=== PATIENT | female | born 1965 | race Caucasian/White ===

== ENCOUNTER 2019-04-09 07:42 | Outpatient (CLI) | payer BC, SELFPAY ==
[2019-04-09 08:25] LABS: Cholesterol 113 mg/dL (0-200); HDL Direct 50 mg/dL; Triglycerides 74 mg/dL (<150)
[2019-04-09 08:37] LABS: LDL Cholesterol Direct 45 mg/dL
== END 2019-04-09 07:43 | disposition home or self-care (01) ==
PROVIDERS: PCP Internal Medicine; Visit Provider Internal Medicine
DX: Z79.899 Other long term (current) drug therapy (principal)
CPT/HCPCS: 36415; 80061

== ENCOUNTER 2019-07-17 13:53 | Outpatient (CLI) | payer BC, SELFPAY ==
[2019-07-17 14:27] LABS: Blood Urea Nitrogen 14 mg/dL (7-17); Calcium 8.9 mg/dL (8.4-10.2); Carbon Dioxide 26 mmol/L (22-30); Chloride 102 mmol/L (98-107); Cholesterol 117 mg/dL (0-200); Estimated Glomerular Filt Rate > 60; Glucose 91 mg/dL (65-105); HDL Direct 46 mg/dL; Sodium 135 mmol/L (137-145); Triglycerides 109 mg/dL (<150)
[2019-07-17 14:38] LABS: LDL Cholesterol Direct 47 mg/dL
[2019-07-17 14:57] LABS: Thyroid Stimulating Hormone 0.455 uIU/mL (0.465-4.680)
[2019-07-17 15:05] LABS: Free T4 Free Thyroxine 1.25 ng/mL (0.78-2.19)
[2019-07-21 10:44] LABS: Homocysteine 9.8 umol/L (<10.4)
== END 2019-07-17 13:54 | disposition home or self-care (01) ==
LOC: ANHLAB 13:55
PROVIDERS: PCP Internal Medicine; Visit Provider Internal Medicine
DX: E78.2 Mixed hyperlipidemia (principal); R79.89 Other specified abnormal findings of blood chemistry; E03.9 Hypothyroidism, unspecified; Z79.899 Other long term (current) drug therapy
CPT/HCPCS: 36415; 80048; 80061; 83090; 84439; 84443

== ENCOUNTER 2019-08-26 07:21 | Outpatient (CLI) | payer BC, SELFPAY ==
--- NOTE | ~2019-08-26 | MM_ITS ---
EXAMINATION: MM screening [facility] BI w xenia HISTORY: Screening mammogram TECHNIQUE: Craniocaudal and mediolateral oblique 3-D tomosynthesis images were obtained and synthetic 2-D images were generated. CAD analysis was submitted and interpreted. COMPARISON: 06/20/2018, 05/31/2017, 04/06/2016 BREAST PARENCHYMAL COMPOSITION: There are scattered areas of fibroglandular density. FINDINGS: There is no evidence of suspicious mass, calcification, or architectural distortion to sugg est malignancy in either breast. There has been no suspicious interval change. IMPRESSION: 1. No mammographic evidence of malignancy. 2. Recommend routine screening mammography in one year. BI-RADS Category 1: Negative Reviewed, dictated and finalized at location A.
== END 2019-08-26 07:22 | disposition home or self-care (01) ==
PROVIDERS: PCP Internal Medicine; Visit Provider Obstetrics & Gynecology
DX: Z12.31 Encounter for screening mammogram for malignant neoplasm of breast (principal)
CPT/HCPCS: 77063; 77067

== ENCOUNTER 2019-11-20 13:30 | Outpatient (CLI) | payer BC, SELFPAY ==
[2019-11-20 13:59] LABS: Alanine Aminotransferase 34 U/L (4-35); Albumin Level 4.4 g/dL (3.5-5.1); Alkaline Phosphatase 68 U/L (38-126); Anion Gap 6 mmol/L (8-16); Aspartate Amino Transferase 28 U/L (14-36); Bilirubin,Total 0.6 mg/dL (0.2-1.3); Blood Urea Nitrogen 13 mg/dL (7-17); Calcium 10.1 mg/dL (8.4-10.2); Carbon Dioxide 29 mmol/L (22-30); Chloride 102 mmol/L (98-107); Cholesterol 150 mg/dL (0-200); Estimated Glomerular Filt Rate 51; Glucose 97 mg/dL (65-105); HDL Direct 56 mg/dL; Potassium 4.2 mmol/L (3.4-5.0); Sodium 137 mmol/L (137-145); Triglycerides 97 mg/dL (<150)
[2019-11-20 14:10] LABS: LDL Cholesterol Direct 65 mg/dL
[2019-11-20 14:32] LABS: Free T4 Free Thyroxine 1.16 ng/mL (0.78-2.19)
== END 2019-11-20 13:31 | disposition home or self-care (01) ==
LOC: ANHLAB 13:32
PROVIDERS: PCP Internal Medicine; Visit Provider Internal Medicine
DX: E78.2 Mixed hyperlipidemia (principal); E03.9 Hypothyroidism, unspecified; Z79.899 Other long term (current) drug therapy
CPT/HCPCS: 36415; 80053; 80061; 84439; 84443

== ENCOUNTER 2020-05-06 13:44 | Outpatient (CLI) | payer BC, SELFPAY ==
[2020-05-06 14:14] LABS: Anion Gap 3 mmol/L (8-16); Blood Urea Nitrogen 12 mg/dL (7-17); Calcium 9.1 mg/dL (8.4-10.2); Carbon Dioxide 29 mmol/L (22-30); Chloride 106 mmol/L (98-107); Cholesterol 126 mg/dL (0-200); Estimated Glomerular Filt Rate 57; Glucose 98 mg/dL (65-105); HDL Direct 51 mg/dL; Potassium 4.1 mmol/L (3.4-5.0); Sodium 138 mmol/L (137-145); Triglycerides 106 mg/dL (<150)
[2020-05-06 14:16] LABS: Hemoglobin A1C 5.3 % (<5.7)
[2020-05-06 14:25] LABS: LDL Cholesterol Direct 49 mg/dL
[2020-05-06 14:44] LABS: Thyroid Stimulating Hormone 0.304 uIU/mL (0.465-4.680)
== END 2020-05-06 13:45 | disposition home or self-care (01) ==
LOC: ANHLAB 13:46
PROVIDERS: PCP Internal Medicine; Visit Provider Internal Medicine
DX: E78.2 Mixed hyperlipidemia (principal); Z79.899 Other long term (current) drug therapy; E03.9 Hypothyroidism, unspecified
CPT/HCPCS: 36415; 80048; 80061; 83036; 84439; 84443

== ENCOUNTER 2020-09-23 11:28 | Outpatient (CLI) | payer BC, SELFPAY ==
--- NOTE | ~2020-09-23 | MM_ITS ---
EXAMINATION: MM screening [facility] BI w xenia HISTORY: Screening TECHNIQUE: Craniocaudal and mediolateral oblique 3-D tomosynthesis images were obtained and synthetic 2-D images were generated. CAD analysis was submitted and interpreted. COMPARISON: Comparison to multiple prior studies sequentially, with oldest reviewed study dated 07/2013. BREAST PARENCHYMAL COMPOSITION: There are scattered areas of fibroglandular density. FINDINGS: There is no evidence of suspicious mass, calcification, or architectural distortion to sugg est malignancy in either breast. There has been no suspicious interval change. IMPRESSION: 1. No mammographic evidence of malignancy. 2. Recommend routine screening mammography in one year. BI-RADS Category 1: Negative Reviewed, dictated and finalized at location A.
== END 2020-09-23 11:29 | disposition home or self-care (01) ==
LOC: ANHIMG 11:31
PROVIDERS: PCP Internal Medicine; Visit Provider Obstetrics & Gynecology
DX: Z12.31 Encounter for screening mammogram for malignant neoplasm of breast (principal)
CPT/HCPCS: 77063; 77067

== ENCOUNTER 2020-12-02 13:28 | Outpatient (CLI) | payer BC, SELFPAY ==
[2020-12-02 13:54] LABS: Basophils Absolute Auto 0.1 K/mm3 (0.0-0.1); Basophils Percent Auto 0.8 % (0.2-1.2); Eosinophils Absolute Auto 0.1 K/mm3 (0-0.3); Eosinophils Percent Auto 1.4 % (0-4.4); Hematocrit 43.6 % (37.0-47.0); Hemoglobin 14.3 g/dL (12.0-15.0); Immature Granulocyte Absolute 0.02 K/mm3 (0.00-0.031); Immature Granulocyte Percent A 0.2 % (0-0.5); Lymphocytes Absolute Auto 3.43 K/mm3 (0.9-3.2); Lymphocytes Percent Auto 39.9 % (18.3-44.2); Mean Corpuscular HGB Conc 32.8 g/dl (32-36); Mean Corpuscular Hemoglobin 31.1 pg (26-34); Mean Corpuscular Volume 94.8 fl (80-100); Mean Platelet Volume 10.2 fl (7.4-10.4); Monocytes Absolute Auto 0.7 K/mm3 (0.1-0.6); Monocytes Percent Auto 8.1 % (2.6-8.5); Neutrophils Absolute Auto 4.3 K/mm3 (1.3-6.7); Neutrophils Percent Auto 49.6 % (45.5-73.1); Platelet Count Result 224 k/mm3 (150-375); Red Cell Distribution Width 12.5 % (11.5-14.5); White Blood Count 8.6 K/mm3 (4.5-10.0)
[2020-12-02 14:21] LABS: Alanine Aminotransferase 32 U/L (4-35); Albumin Level 4.7 g/dL (3.5-5.1); Alkaline Phosphatase 64 U/L (38-126); Anion Gap 5 mmol/L (8-16); Aspartate Amino Transferase 30 U/L (14-36); Bilirubin,Total 0.6 mg/dL (0.2-1.3); Blood Urea Nitrogen 18 mg/dL (7-17); Calcium 9.4 mg/dL (8.4-10.2); Carbon Dioxide 31 mmol/L (22-30); Chloride 102 mmol/L (98-107); Cholesterol 150 mg/dL (0-200); Estimated Glomerular Filt Rate 57; Glucose 94 mg/dL (65-110); HDL Direct 69 mg/dL; Sodium 138 mmol/L (137-145); Triglycerides 107 mg/dL (<150)
[2020-12-02 14:32] LABS: LDL Cholesterol Direct 52 mg/dL
[2020-12-02 14:39] LABS: Free T4 Free Thyroxine 1.52 ng/mL (0.78-2.19)
[2020-12-06 15:32] LABS: Vitamin D 1,25 (OH)2 Total 36 pg/mL (18-72); Vitamin D2 1,25 (OH)2 <8 pg/mL; Vitamin D3 1,25 (OH)2 36 pg/mL
== END 2020-12-02 13:29 | disposition home or self-care (01) ==
LOC: ANHLAB 13:33
PROVIDERS: PCP Internal Medicine; Referring Provider Internal Medicine Endocrinology, Diabetes & Metabolism; Visit Provider Internal Medicine
DX: E78.2 Mixed hyperlipidemia (principal); E55.9 Vitamin D deficiency, unspecified; Z79.899 Other long term (current) drug therapy; E03.9 Hypothyroidism, unspecified
CPT/HCPCS: 36415; 80053; 80061; 82652; 84439; 84443; 85025

== ENCOUNTER 2021-01-27 09:07 | Outpatient (CLI) | payer BC, SELFPAY ==
--- NOTE | ~2021-01-27 | US_ITS ---
EXAMINATION: US abdomen limited EXAM DATE: 01/27/2021 11:09 INDICATION: K82.4 - Cholesterolosis of gallbladder. TECHNIQUE: Multiple grayscale and Doppler images of the abdomen right upper quadrant were obtained (b y a technologist who performed the scan) and subsequently reviewed. There is no prior study for clinton pierson. FINDINGS: The pancreatic head and body are normal in appearance. The pancreatic tail is not visualized. The l iver has normal echogenicity and contour. There are no focal liver lesions identified. There is no evidence of intrahepatic biliary duct dilation. Portal venous flow was seen in the hepatopedal, nor mal direction and has normal Doppler waveform. No right-sided hydronephrosis. Common bile duct measures 3 mm, which is normal. The gallbladder wall is normal in thickness, with ex pected amount of distention. No sonographic evidence of pericholecystic fluid. There is 3-4 mm poly p unchanged, not clinically significant finding; no follow-up indicated. No cholelithiasis. Technolog ist performing exam reports patient did not demonstrate sonographic Higuera's sign. Please note that this sign is less reliable in patients who have received pain medication. IMPRESSION: Unremarkable abdominal ultrasound exam. Reviewed, dictated and finalized at location A. NO PORTER
== END 2021-01-27 09:08 | disposition home or self-care (01) ==
LOC: ANHIMG 09:08
PROVIDERS: PCP Internal Medicine; Visit Provider Internal Medicine
DX: K82.4 Cholesterolosis of gallbladder (principal)
CPT/HCPCS: 76705

== ENCOUNTER 2021-06-30 13:43 | Outpatient (CLI) | payer BC, SELFPAY ==
[2021-06-30 14:03] LABS: Basophils Absolute Auto 0.1 K/mm3 (0.0-0.1); Eosinophils Absolute Auto 0.2 K/mm3 (0-0.3); Hematocrit 42.6 % (37.0-47.0); Hemoglobin 13.7 g/dL (12.0-15.0); Immature Granulocyte Absolute 0.02 K/mm3 (0.00-0.031); Immature Granulocyte Percent A 0.3 % (0-0.5); Lymphocytes Absolute Auto 3.73 K/mm3 (0.9-3.2); Lymphocytes Percent Auto 47.5 % (18.3-44.2); Mean Corpuscular HGB Conc 32.2 g/dl (32-36); Mean Corpuscular Hemoglobin 30.4 pg (26-34); Mean Corpuscular Volume 94.5 fl (80-100); Mean Platelet Volume 9.8 fl (7.4-10.4); Monocytes Absolute Auto 0.7 K/mm3 (0.1-0.6); Monocytes Percent Auto 8.7 % (2.6-8.5); Neutrophils Absolute Auto 3.2 K/mm3 (1.3-6.7); Neutrophils Percent Auto 40.5 % (45.5-73.1); Platelet Count Result 227 k/mm3 (150-375); Red Blood Count 4.51 M/mm3 (4.2-5.4); Red Cell Distribution Width 12.1 % (11.5-14.5); White Blood Count 7.9 K/mm3 (4.5-10.0)
[2021-06-30 14:17] LABS: Alanine Aminotransferase 28 U/L (6-35); Albumin Level 4.2 g/dL (3.5-5.1); Alkaline Phosphatase 65 U/L (38-126); Anion Gap 8 mmol/L (8-16); Aspartate Amino Transferase 29 U/L (14-36); Bilirubin,Total 0.7 mg/dL (0.2-1.3); Blood Urea Nitrogen 15 mg/dL (7-17); Calcium 8.5 mg/dL (8.4-10.2); Carbon Dioxide 22 mmol/L (22-30); Chloride 105 mmol/L (98-107); Cholesterol 144 mg/dL (0-200); Estimated Glomerular Filt Rate 57; Glucose 92 mg/dL (65-110); HDL Direct 58 mg/dL; Potassium 4.1 mmol/L (3.4-5.0); Sodium 135 mmol/L (137-145); Triglycerides 129 mg/dL (<150)
[2021-06-30 14:23] LABS: Add Urine Microscopic? NO; Appearance Urine Clear (Clear); Bilirubin Urine Negative (Negative); Blood Urine Negative (Negative); Color Urine Yellow (Yellow); Glucose Urine UA Negative (Negative); Ketones Urine Negative (Negative); Leukocyte Esterase Ur Negative LEU/UL (Negative); Nitrate Urine Negative (Negative); Protein Urine Negative (Negative); Specific Grav Ur 1.015 (1.001-1.035); Urobilinogen Urine 0.2 mg/dL (<2.0); pH Urine 5.5 (5.0-9.0)
[2021-06-30 14:28] LABS: LDL Cholesterol Direct 47 mg/dL
[2021-06-30 14:35] LABS: Hemoglobin A1C 5.5 % (<5.7)
== END 2021-06-30 13:44 | disposition home or self-care (01) ==
LOC: ANHLAB 13:45
PROVIDERS: PCP Internal Medicine; Visit Provider Internal Medicine
DX: Z51.81 Encounter for therapeutic drug level monitoring (principal); Z79.899 Other long term (current) drug therapy; E78.2 Mixed hyperlipidemia
CPT/HCPCS: 36415; 80048; 80061; 80076; 81003; 83036; 85025

== ENCOUNTER 2021-11-15 17:12 | Outpatient (CLI) | payer BC, SELFPAY ==
--- NOTE | ~2021-11-15 | MM_ITS ---
EXAMINATION: MM screening [facility] BI w xenia HISTORY: Screening mammogram TECHNIQUE: Craniocaudal and mediolateral oblique 3-D tomosynthesis images were obtained and synthetic 2-D images were generated. CAD analysis was submitted and interpreted. COMPARISON: 09/23/2020, 08/26/2019, 06/2018 bilateral screening mammogram examinations BREAST PARENCHYMAL COMPOSITION: There are scattered areas of fibroglandular density. FINDINGS: There is no evidence of suspicious mass, calcification, or architectural distortion to sugg est malignancy in either breast. There has been no suspicious interval change. IMPRESSION: 1. No mammographic evidence of malignancy. 2. Recommend routine screening mammography in one year. BI-RADS Category 1: Negative Reviewed, dictated and finalized at location A.
== END 2021-11-15 17:13 | disposition home or self-care (01) ==
PROVIDERS: PCP Internal Medicine; Visit Provider Obstetrics & Gynecology
DX: Z12.31 Encounter for screening mammogram for malignant neoplasm of breast (principal)
CPT/HCPCS: 77063; 77067

== ENCOUNTER 2022-01-05 12:39 | Outpatient (CLI) | payer BC, SELFPAY ==
[2022-01-05 13:09] LABS: Basophils Absolute Auto 0.1 K/mm3 (0.0-0.1); Basophils Percent Auto 0.8 % (0.2-1.2); Eosinophils Absolute Auto 0.1 K/mm3 (0-0.3); Eosinophils Percent Auto 2.3 % (0-4.4); Hematocrit 43.5 % (37.0-47.0); Immature Granulocyte Absolute 0.01 K/mm3 (0.00-0.031); Immature Granulocyte Percent A 0.2 % (0-0.5); Lymphocytes Absolute Auto 2.43 K/mm3 (0.9-3.2); Lymphocytes Percent Auto 39.3 % (18.3-44.2); Mean Corpuscular HGB Conc 32.2 g/dl (32-36); Mean Corpuscular Hemoglobin 29.9 pg (26-34); Mean Corpuscular Volume 92.8 fl (80-100); Mean Platelet Volume 9.5 fl (7.4-10.4); Monocytes Absolute Auto 0.6 K/mm3 (0.1-0.6); Monocytes Percent Auto 10.3 % (2.6-8.5); Neutrophils Absolute Auto 2.9 K/mm3 (1.3-6.7); Neutrophils Percent Auto 47.1 % (45.5-73.1); Platelet Count Result 222 k/mm3 (150-375); Red Blood Count 4.69 M/mm3 (4.2-5.4); Red Cell Distribution Width 11.9 % (11.5-14.5); White Blood Count 6.2 K/mm3 (4.5-10.0)
[2022-01-05 13:21] LABS: Alanine Aminotransferase 37 U/L (6-35); Albumin Level 4.3 g/dL (3.5-5.1); Alkaline Phosphatase 58 U/L (38-126); Anion Gap 7 mmol/L (8-16); Aspartate Amino Transferase 32 U/L (14-36); Bilirubin,Total 0.8 mg/dL (0.2-1.3); Blood Urea Nitrogen 12 mg/dL (7-17); Carbon Dioxide 27 mmol/L (22-30); Chloride 103 mmol/L (98-107); Cholesterol 138 mg/dL (0-200); Estimated Glomerular Filt Rate 57; Glucose 90 mg/dL (65-110); HDL Direct 54 mg/dL; Sodium 137 mmol/L (137-145); Triglycerides 107 mg/dL (<150)
[2022-01-05 13:33] LABS: LDL Cholesterol Direct 51 mg/dL
[2022-01-05 14:16] LABS: Hemoglobin A1C 5.7 % (<5.7)
[2022-01-05 14:37] LABS: Free T4 Free Thyroxine 1.26 ng/mL (0.78-2.19); Vitamin D 25 Hydroxy 53.4 ng/mL
== END 2022-01-05 12:40 | disposition home or self-care (01) ==
LOC: ANHLAB 12:41
PROVIDERS: PCP Internal Medicine; Visit Provider Internal Medicine
DX: E03.9 Hypothyroidism, unspecified (principal); Z13.21 Encounter for screening for nutritional disorder; Z79.899 Other long term (current) drug therapy; E78.2 Mixed hyperlipidemia
CPT/HCPCS: 36415; 80053; 80061; 82306; 83036; 84439; 84443; 85025

== ENCOUNTER 2022-07-06 13:38 | Outpatient (CLI) | payer BC, SELFPAY ==
[2022-07-06 13:59] LABS: Basophils Percent Auto 0.7 % (0.2-1.2); Eosinophils Absolute Auto 0.1 K/mm3 (0-0.3); Eosinophils Percent Auto 1.7 % (0-4.4); Hematocrit 42.9 % (37.0-47.0); Hemoglobin 14.3 g/dL (12.0-15.0); Immature Granulocyte Absolute 0.01 K/mm3 (0.00-0.031); Immature Granulocyte Percent A 0.2 % (0-0.5); Lymphocytes Absolute Auto 1.59 K/mm3 (0.9-3.2); Lymphocytes Percent Auto 29.2 % (18.3-44.2); Mean Corpuscular HGB Conc 33.3 g/dl (32-36); Mean Corpuscular Volume 89.9 fl (80-100); Monocytes Absolute Auto 0.6 K/mm3 (0.1-0.6); Monocytes Percent Auto 10.1 % (2.6-8.5); Neutrophils Absolute Auto 3.2 K/mm3 (1.3-6.7); Neutrophils Percent Auto 58.1 % (45.5-73.1); Platelet Count Result 203 k/mm3 (150-375); Red Blood Count 4.77 M/mm3 (4.2-5.4); Red Cell Distribution Width 11.7 % (11.5-14.5); White Blood Count 5.5 K/mm3 (4.5-10.0)
[2022-07-06 14:10] LABS: Alanine Aminotransferase 38 U/L (6-35); Albumin Level 4.4 g/dL (3.5-5.1); Alkaline Phosphatase 58 U/L (38-126); Anion Gap 6 mmol/L (8-16); Aspartate Amino Transferase 35 U/L (14-36); Blood Urea Nitrogen 17 mg/dL (7-17); Carbon Dioxide 29 mmol/L (22-30); Chloride 100 mmol/L (98-107); Cholesterol 130 mg/dL (0-200); Estimated Glomerular Filt Rate 51; Glucose 92 mg/dL (65-110); HDL Direct 56 mg/dL; Potassium 4.1 mmol/L (3.4-5.0); Sodium 135 mmol/L (137-145); Triglycerides 123 mg/dL (<150)
[2022-07-06 14:17] LABS: Hemoglobin A1C 5.4 % (<5.7)
[2022-07-06 14:21] LABS: LDL Cholesterol Direct 45 mg/dL
== END 2022-07-06 13:39 | disposition home or self-care (01) ==
LOC: ANHLAB 13:41
PROVIDERS: PCP Internal Medicine; Visit Provider Internal Medicine
DX: Z79.899 Other long term (current) drug therapy (principal); E78.2 Mixed hyperlipidemia; R73.09 Other abnormal glucose
CPT/HCPCS: 36415; 80053; 80061; 83036; 85025

== ENCOUNTER 2022-11-09 11:20 | Outpatient (CLI) | payer BC, SELFPAY ==
[2022-11-09 13:02] LABS: Thyroid Stimulating Hormone 0.328 uIU/mL (0.465-4.680)
[2022-11-09 13:07] LABS: Free T4 Free Thyroxine 1.44 ng/mL (0.78-2.19)
== END 2022-11-09 11:21 | disposition home or self-care (01) ==
PROVIDERS: PCP Internal Medicine; Referring Provider Internal Medicine; Visit Provider Internal Medicine Endocrinology, Diabetes & Metabolism
DX: E03.9 Hypothyroidism, unspecified (principal)
CPT/HCPCS: 36415; 84439; 84443

== ENCOUNTER 2023-01-25 12:59 | Outpatient (CLI) | payer BC, SELFPAY ==
[2023-01-25 14:30] LABS: Alanine Aminotransferase 39 U/L (6-35); Albumin Level 4.5 g/dL (3.5-5.1); Alkaline Phosphatase 72 U/L (38-126); Anion Gap 8 mmol/L (8-16); Aspartate Amino Transferase 32 U/L (14-36); Blood Urea Nitrogen 14 mg/dL (7-17); Calcium 9.5 mg/dL (8.4-10.2); Carbon Dioxide 26 mmol/L (22-30); Chloride 104 mmol/L (98-107); Cholesterol 154 mg/dL (0-200); Estimated Glomerular Filt Rate > 60; Glucose 88 mg/dL (65-110); HDL Direct 57 mg/dL; Sodium 138 mmol/L (137-145); Triglycerides 154 mg/dL (<150)
[2023-01-25 14:31] LABS: Hemoglobin A1C 5.8 % (<5.7)
[2023-01-25 14:42] LABS: LDL Cholesterol Direct 63 mg/dL
[2023-01-25 14:48] LABS: Free T4 Free Thyroxine 1.57 ng/mL (0.78-2.19)
[2023-01-25 14:59] LABS: Thyroid Stimulating Hormone 0.286 uIU/mL (0.465-4.680)
[2023-01-25 15:36] LABS: Folic Acid > 20.0 ng/mL (2.76->20)
== END 2023-01-25 13:00 | disposition home or self-care (01) ==
LOC: ANHLAB 13:01
PROVIDERS: PCP Internal Medicine; Visit Provider Internal Medicine
DX: E78.5 Hyperlipidemia, unspecified (principal); E03.9 Hypothyroidism, unspecified; R79.89 Other specified abnormal findings of blood chemistry; Z79.899 Other long term (current) drug therapy; Z13.1 Encounter for screening for diabetes mellitus
CPT/HCPCS: 36415; 80053; 80061; 82607; 82746; 83036; 84439; 84443

== ENCOUNTER → 2023-02-22 09:50 | Outpatient (CLI) | payer BC, SELFPAY ==
--- NOTE | ~2023-02-22 | US_ITS ---
Limited Abdominal Sonogram: Real-time sonographic imaging of the right upper quadrant was performed. Clinical History: Cholesterolosis of gallbladder Findings: The liver appears mildly echogenic, with no evidence of mass lesion or bile duct dilatatio n. Main portal vein demonstrates normal direction of flow. The gallbladder is well distended, probabl e subcentimeter polyp noted. The common bile duct measures 4 mm. The visualized pancreas, aorta, and IVC are unremarkable. Impression: Probable small gallbladder wall polyp. Reviewed, dictated and finalized at location M. WRITER Impression: Probable small gallbladder wall polyp.
== END ==
PROVIDERS: PCP Internal Medicine; Visit Provider Internal Medicine
DX: K82.4 Cholesterolosis of gallbladder (principal)
CPT/HCPCS: 76705

== ENCOUNTER 2023-02-27 07:17 | Outpatient (CLI) | payer BC, SELFPAY ==
--- NOTE | ~2023-02-27 | MM_ITS ---
EXAMINATION: MM screening [facility] BI w xenia HISTORY: Screening mammogram TECHNIQUE: Craniocaudal and mediolateral oblique 3-D tomosynthesis images were obtained and synthetic 2-D images were generated. CAD analysis was submitted and interpreted. COMPARISON: 11/15/2021, at 721, 08/26/2019 BREAST PARENCHYMAL COMPOSITION: There are scattered areas of fibroglandular density. FINDINGS: No suspicious mass, calcification, or architectural distortion are identified in either amparo ast to suggest malignancy. There has been no suspicious interval change. IMPRESSION: 1. No mammographic evidence of malignancy. 2. Recommend routine screening mammography in one year. BI-RADS Category 1: Negative Reviewed, dictated and finalized at location A. 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
== END 2023-02-27 07:18 | disposition home or self-care (01) ==
LOC: ANHIMG 07:19
PROVIDERS: PCP Internal Medicine; Visit Provider Obstetrics & Gynecology
DX: Z12.31 Encounter for screening mammogram for malignant neoplasm of breast (principal)
CPT/HCPCS: 77063; 77067

== ENCOUNTER 2023-07-28 12:05 | Outpatient (CLI) | payer BC, SELFPAY ==
--- NOTE | ~2023-07-28 | XR_ITS ---
Left Shoulder Technique: AP and scapular Y views were obtained. Clinical History: Pain Findings: No fracture or dislocation is seen. Osseous alignment is anatomic. The glenohumeral and acr omioclavicular joint spaces are preserved. Soft tissues are unremarkable. Impression: Unremarkable left shoulder radiographs. Reviewed, dictated and finalized at [facility]. Impression: Unremarkable left shoulder radiographs.
== END 2023-07-28 12:06 | disposition home or self-care (01) ==
LOC: ANHIMG 12:06
PROVIDERS: PCP Internal Medicine; Visit Provider Internal Medicine
DX: M25.512 Pain in left shoulder (principal)
CPT/HCPCS: 73030

== ENCOUNTER 2023-08-09 13:24 | Outpatient (CLI) | payer BC, SELFPAY ==
[2023-08-09 14:09] LABS: Basophils Absolute Auto 0.1 K/mm3 (0.0-0.1); Basophils Percent Auto 0.8 % (0.2-1.2); Eosinophils Absolute Auto 0.1 K/mm3 (0-0.3); Eosinophils Percent Auto 1.7 % (0-4.4); Hematocrit 42.8 % (37.0-47.0); Hemoglobin 14.6 g/dL (12.0-15.0); Immature Granulocyte Absolute 0.02 K/mm3 (0.00-0.031); Immature Granulocyte Percent A 0.3 % (0-0.5); Lymphocytes Absolute Auto 1.92 K/mm3 (0.9-3.2); Lymphocytes Percent Auto 31.9 % (18.3-44.2); Mean Corpuscular HGB Conc 34.1 g/dl (32-36); Mean Corpuscular Hemoglobin 30.6 pg (26-34); Mean Corpuscular Volume 89.7 fl (80-100); Mean Platelet Volume 10.2 fl (7.4-10.4); Monocytes Absolute Auto 0.6 K/mm3 (0.1-0.6); Monocytes Percent Auto 9.3 % (2.6-8.5); Neutrophils Absolute Auto 3.4 K/mm3 (1.3-6.7); Platelet Count Result 225 k/mm3 (150-375); Red Blood Count 4.77 M/mm3 (4.2-5.4); Red Cell Distribution Width 11.9 % (11.5-14.5)
[2023-08-09 14:14] LABS: Appearance Urine Clear (Clear); Bilirubin Urine Negative (Negative); Blood Urine Negative (Negative); Color Urine Yellow (Yellow); Glucose Urine UA Negative (Negative); Ketones Urine Negative (Negative); Leukocyte Esterase Ur Negative LEU/UL (Negative); Nitrate Urine Negative (Negative); Protein Urine Negative (Negative); Urobilinogen Urine 0.2 mg/dL (<2.0); pH Urine 5.5 (5.0-9.0)
[2023-08-09 14:24] LABS: Alanine Aminotransferase 33 U/L (6-35); Albumin Level 4.5 g/dL (3.5-5.1); Alkaline Phosphatase 65 U/L (38-126); Anion Gap 7 mmol/L (4-12); Aspartate Amino Transferase 27 U/L (14-36); Bilirubin,Total 0.8 mg/dL (0.2-1.3); Blood Urea Nitrogen 15 mg/dL (7-17); Calcium 9.2 mg/dL (8.4-10.2); Carbon Dioxide 23 mmol/L (22-30); Chloride 106 mmol/L (98-107); Cholesterol 168 mg/dL (0-200); Estimated Glomerular Filt Rate 51; Glucose 89 mg/dL (65-110); HDL Direct 65 mg/dL; Sodium 136 mmol/L (137-145); Triglycerides 158 mg/dL (<150)
[2023-08-09 14:27] LABS: Add Urine Microscopic? NO; Specific Grav Ur 1.004 (1.001-1.035)
[2023-08-09 14:36] LABS: LDL Cholesterol Direct 80 mg/dL
[2023-08-09 14:45] LABS: Free T4 Free Thyroxine 1.49 ng/mL (0.78-2.19)
[2023-08-09 14:46] LABS: Hemoglobin A1C 5.5 % (<5.7)
[2023-08-09 14:55] LABS: Thyroid Stimulating Hormone 0.414 uIU/mL (0.465-4.680)
[2023-08-12 13:23] LABS: Insulin Level Total 13.3 uIU/mL
== END 2023-08-09 13:25 | disposition home or self-care (01) ==
LOC: ANHLAB 13:26
PROVIDERS: PCP Internal Medicine; Visit Provider Internal Medicine
DX: Z00.00 Encounter for general adult medical examination without abnormal findings (principal); E03.9 Hypothyroidism, unspecified; E78.5 Hyperlipidemia, unspecified; R73.03 Prediabetes; Z79.899 Other long term (current) drug therapy
CPT/HCPCS: 36415; 80053; 80061; 81003; 83036; 83525; 84439; 84443; 85025

== ENCOUNTER 2023-09-17 17:28 | Outpatient (CLI) | payer BC, SELFPAY ==
--- NOTE | ~2023-09-17 | XR_ITS ---
[id number] Ordering provider: Tyler Berger MD History: . M54.2 - Cervicalgia . Comparison: October 31, 2011 FINDINGS: VERTEBRAL BODIES: Normal height and alignment. No visible fracture or subluxation. The dens is intact . Small Bony fragment is seen near to the spinous process of C6 most likely due to old trauma or ossi fication in the soft tissues. Degenerative changes of the spine. DISK SPACES: Narrowing of the disc C5-C6 and C6-C7. Multilevel facet joint disease. Multilevel uncove rtebral joint osteoarthritic changes. PARASPINOUS SOFT TISSUES: No prevertebral soft tissue swelling. IMPRESSION: No acute osseous abnormality cervical spine. Multilevel degenerative disc disease. Reviewed, dictated and finalized at location A.
== END 2023-09-17 17:29 | disposition home or self-care (01) ==
LOC: ANHIMG 17:29
PROVIDERS: PCP Internal Medicine; Visit Provider Internal Medicine
DX: M50.322 Other cervical disc degeneration at C5-C6 level (principal); M50.323 Other cervical disc degeneration at C6-C7 level
CPT/HCPCS: 72040

== ENCOUNTER 2024-02-07 10:21 | Outpatient (CLI) | payer BC, SELFPAY ==
[2024-02-07 10:49] LABS: Anion Gap 8 mmol/L (4-12); Blood Urea Nitrogen 15 mg/dL (7-17); Calcium 9.2 mg/dL (8.4-10.2); Carbon Dioxide 26 mmol/L (22-30); Chloride 100 mmol/L (98-107); Cholesterol 133 mg/dL (0-200); Estimated Glomerular Filt Rate 51; Glucose 99 mg/dL (65-110); HDL Direct 50 mg/dL; Potassium 3.9 mmol/L (3.4-5.0); Sodium 134 mmol/L (137-145); Triglycerides 126 mg/dL (<150)
[2024-02-07 10:59] LABS: LDL Cholesterol Direct 44 mg/dL
[2024-02-07 11:11] LABS: Free T4 Free Thyroxine 1.86 ng/dL (0.78-2.19)
[2024-02-07 11:59] LABS: Hemoglobin A1C 5.7 % (<5.7)
--- OUTSIDE RECORDS SUMMARY | 2024-02-14 13:38 | XMS_ITS | Encounter Summary ---
Author Organization [facility] Address [address] [facility] [address] [place] [address] Phone Care Team Providers Care Transportation Clerk Name Role Phone Tyler Berger MD Primary Care Provider [phone] Reason for Referral * Durable Medical Equipment (Routine) - Closed Specialty Diagnoses / Procedures Referred By Contac t Referred To Contact Diagnoses Right knee pain, unspecified chronicity Procedures [place] [address] [facility] [address] [facility] [address] [place] [address] Phone: tel: fax: [facility] [address] [facility] [address] [place] [address] Phone: tel: Referral ID Status Reason Start Date Expiration Date Visits Re quested Visits Authorized [id number] Closed 11/01/2020 12/01/2021 1 1 Encounter Details Date Type Department Care Team (Late st Contact Info) Description 11/01/2020 Orders Only [facility] [address] [place] [address] Sylvia Dennison ATC Right knee pain, unspecified chronicity (Primary Dx) Social History Tobacco Use Types Packs/Day Years Used Date Smoking Tobacco: Never Smokeless Tobacco: Never PHQ-2 Answer Date Recorded PHQ-2 Total Score (If total score is 3 or more points, staff should administer the PHQ-9) 0 07/18/2020 Comments Unknown Sex and Gender Information Value Date Recorded Sex Assigned at Not on file Legal Sex Female 1:26 PM CDT Gender Identity Not on file Sexual Orientation Not on file documented as of this encounter Plan of Treatment Not on file documented as of this encounter Visit Diagnoses Diagnosis Right knee pain, unspecified chronicity- Primary documented in this encounter Orders General Supply Count Last Ordered Date First Or dered Date MISCELLANEOUS DME 1 11/01/2020 documented in this encounter Care Teams Transportation Clerk Relationship Specialty Start Date End Date Tyler Berger MD [address] [facility] [address] [place] [address] PCP - General 08/12/16 documented as of this encounter
--- OUTSIDE RECORDS SUMMARY | 2024-02-14 13:38 | XMS_ITS | Encounter Summary ---
Author Organization [facility] Address [address] [facility] [address] [place] [address] Care Team Providers Care Lens Molder Name Role Phone Tyler Berger MD Primary Care Provider [phone] Reason for Visit * Reason Onset Date Comments Med Refill 10/25/2021 Encounter Details Date Type Department Care Team (Late st Contact Info) Description 10/25/2021 Telephone [facility] [address] [address] [place] [id number] [place] [address] [address], [place] [address] Med Refill Social History Tobacco Use Types Packs/Day Years Used Date Smoking Tobacco: Never Smokeless Tobacco: Never PHQ-2 Answer Date Recorded PHQ-2 Total Score (If total score is 3 or more points, staff should administer the PHQ-9) 0 10/16/2021 Comments Unknown Sex and Gender Information Value Date Recorded Sex Assigned at Not on file Legal Sex Female 1:26 PM CDT Gender Identity Not on file Sexual Orientation Not on file documented as of this encounter Miscellaneous Notes * Telephone Encounter - En Aguirre. - 10/25/2021 3:[address] Gabriel, The pharmacy called requesting to have a 90day rx for Levothyroxine so it can be dispensed as Synthroid. Please send the rx because it will be cheaper in cost for the patient. documented in this encounter Plan of Treatment Not on file documented as of this encounter Visit Diagnoses Not on filedocumented in this encounter Care Teams Lens Molder Relationship Specialty Start Date End Date Tyler Berger MD [address] [facility] [address] [place] [id number] PCP - General 08/12/16 documented as of this encounter
--- OUTSIDE RECORDS SUMMARY | 2024-02-14 13:38 | XMS_ITS | Encounter Summary ---
Author Organization [facility] Medical [facility] Address [address] [facility] [address] [place] [address] Care Team Providers Care Information Services Assistant Name Role Phone Tyler Berger MD Primary Care Provider [phone] Reason for Visit * Reason Onset Date Comments Med Management 05/04/2019 Sythroid Encounter Details Date Type Department Care Team (Late st Contact Info) Description 05/04/2019 Telephone [facility] [address] [facility] [address] [address] [place] [id number] [place] [address] [address] [place] [address] Med Management (Sythroid) Social History Tobacco Use Types Packs/Day Years Used Date Smoking Tobacco: Never Smokeless Tobacco: Never PHQ-2 Answer Date Recorded PHQ-2 Score 0 10/10/2018 Comments Unknown Sex and Gender Information Value Date Recorded Sex Assigned at Not on file Legal Sex Female 1:26 PM CDT Gender Identity Not on file Sexual Orientation Not on file documented as of this encounter Miscellaneous Notes * Telephone Encounter - Jenna Arenas - 05/12/2019 11:21 AM CDT [facility] faxed and scanned with conformation * Telephone Encounter - Ila Perdomo MA - 05/10/2019 3:14 PM CDT Form received from [facility] needing completed since the prescription can not be marked With a BLANCHE of [address] don FR desk for signature * Telephone Encounter - Jenna Arenas - 05/10/2019 12:02 PM CDT Pharmacy called requesting we send medication over with daw5 checked do not see that as an option on refill page explained to pharmacy * Telephone Encounter - Daniel Monsalve - 05/06/2019 1:54 PM CDT Incoming call from patient Patient states the Synthroid has to be sent to [facility] mail order Please send SYNTHROID BLANCHE, do not add any notes stating patient needs to have the brand name just john BLANCHE Please contact patient once this had been done To Jenna * Telephone Encounter - Jenna Arenas - 05/05/2019 4:06 PM CDT lvm for pt to give office a call back * Telephone Encounter - Luigi Gabriel MD - 05/05/2019 1:05 PM CDT Let the pt there is nothing we can do about it, if can't pay burns, will have to go with generic * Telephone Encounter - Jenna Arenas - 05/04/2019 1:06 PM CDT Spoke to [facility] last Friday and resent orders in I do not know what to do at this point it has been sent in called in and spoke to sales representative wire rope and medication is not getting covered. * Telephone Encounter - Aisha Love - 05/04/2019 12:38 PM CDT Prescription will need to be called in to [facility] at [phone] and when called in it will need to be called in for Synthroid with no BLANCHE however you must say provider wants patient to have brand. documented in this encounter Plan of Treatment Not on file documented as of this encounter Visit Diagnoses Not on filedocumented in this encounter Care Teams Information Services Assistant Relationship Specialty Start Date End Date Tyler Berger MD [address] [facility] [address] [facility] [address] [place], [place] [id number] PCP - General 08/12/16 documented as of this encounter
--- OUTSIDE RECORDS SUMMARY | 2024-02-14 13:38 | XMS_ITS | Encounter Summary ---
Author Organization [facility] Address [address] [facility] [address] [place] [address] Care Team Providers Care Quality Control Projectionist Name Role Phone Tyler Berger MD Primary Care Provider [phone] Reason for Visit * Reason Onset Date Comments Thyroid Lab Order Request 10/16/2022 req for lab results 10/16/2022 Encounter Details Date Type Department Care Team (Late st Contact Info) Description 10/16/2022 Telephone [facility] [address] [facility] [address] [place] [address] [place] [address] [facility] [address], [place] [id number] Thyroid Lab Order Request; req for lab results Social History Tobacco Use Types Packs/Day Years [...] as of this encounter Miscellaneous Notes * Addendum Note - Chante Perdomo MA - 10/24/2022 7:26 AM CDTAddended by: CHANTE PERDOMO on: 10/24/2022 07:26 AM Modules accepted: Orders * Telephone Encounter - Chante Perdomo MA - 10/24/2022 7:25 AM CDT Orders faxed to [facility] Pt informed in response to [employer] message * Telephone Encounter - Luigi Gabriel MD - 10/17/2022 4:01 PM CDT Okay to send order for TSH and free T4 Okay to send prescription for Synthroid * Telephone Encounter - Mary Kelsey - 10/16/2022 2:33 PM CDT Called the patient to request a better copy of her labs from June 2022 she will try to upload and send it via [employer]. She, also stated that she did not have a TSH done in June and would like lab reqs sent to [place]. She, also stated that if there are any other issues with her prescription she willlet us know. * Telephone Encounter - Cristal Moctezuma - 10/16/2022 10:50 AM CDT Patient / [phone] Patient requesting script to have thyroid check (labs) Requesting for orders to go to [facility] Also, stated [facility]- Needing approval from to fill Levothyroxine/Synthroid (Rx 0151) Requesting a call back to confirm documented in this encounter Plan of Treatment Scheduled Orders Name Type Priority Associated Diagnoses Orde r Schedule TSH Lab Routine Acquired hypothyroidism Expected: 10/24/2022, Expires: 10/25/2023 T4, free Lab Routine Acquired hypothyroidism Expected: 10/24/2022, Expires: 10/25/2023 documented as of this encounter Visit Diagnoses Diagnosis Acquired hypothyroidism- Primary Unspecified hypothyroidism documented in this encounter Care Teams Quality Control Projectionist Relationship Specialty Start Date End Date Tyler Berger MD [address] [facility] [address] [facility] [address] [place] [address] PCP - General 08/12/16 documented as of this encounter
--- OUTSIDE RECORDS SUMMARY | 2024-02-14 13:38 | XMS_ITS | Encounter Summary ---
Author Organization [facility] Address [address] [address] Care Team Providers Care Cad Specialist Name Role Phone Tyler Berger MD Primary Care Provider [phone] Encounter Details Date Type Department Care Team (Late st Contact Info) Description 10/24/2022 Orders Only [facility] Diabetes and Endocrinology [address] [place] [phone] Provider, MD Marta [address] [place] [address] Social History Tobacco Use Types Packs/Day Years [...] on file documented as of this encounter Procedures Procedure Name Priority Date/Time Associated Diagnosis Comments HEMOGLOBIN A1C Routine 07/06/2022 1:48 PM CDT LIPID PANEL Routine 07/06/2022 1:48 PM CDT COMPREHENSIVE METABOLIC PANEL Routine 07/06/2022 1:48 PM CDT documented in this encounter Results * (ABNORMAL) Comprehensive metabolic panel (07/06/2022 1:48 PM CDT) SCRIBED Sodium 135(A) 137 - 145 mmol/L EXTERNAL LAB SCRIBED Potassium 4.1 3.4 - 5.0 mmol/L EXTERNAL LAB SCRIBED Chloride 100 98 - 107 mmol/L EXTERNAL LAB SCRIBED Carbon Dioxide 29 22 - 30 mmol/L EXTERNAL LAB SCRIBED Anion Gap 6(A) 8 - 16 mmol/L EXTERNAL LAB SCRIBED Urea Nitrogen (BUN) 17 7 - 17 mg/dl EXTERNAL LAB SCRIBED Creatinine 1.10(A) 0.7 - 1.0 mg/dl EXTERNAL LAB SCRIBED Glucose 92 65 - 110 mg/dl EXTERNAL LAB SCRIBED Calcium 9.0 8.4 - 10.2 mg/dl EXTERNAL LAB SCRIBED Bilirubin 1.0 0.2 - 1.3 mg/dl EXTERNAL LAB SCRIBED Plasma Protein 7.0 6.3 - 8.2 g/dl EXTERNAL LAB SCRIBED Albumin 4.4 3.5 - 5.1 g/dl EXTERNAL LAB SCRIBED Alkaline Phosphatase 58 38 - 126 Units/L EXTERNAL LAB SCRIBED Alanine Transaminase (ALT) 38(A) 6 - 35 Units/L EXTERNAL LAB SCRIBED Aspartate Transaminase (AST) 35 14 - 36 Units/L EXTERNAL LAB SCRIBED eGFR in NonAfrican Vietnamese 51 >59 - NA EXTERNAL LAB Blood 07/06/2022 1:48 PM CDT Historical Provider LAB BLOOD ORDERABLES Edit ed Result - Final EXTERNAL LAB * Lipid panel (07/06/2022 1:48 PM CDT) SCRIBED Cholesterol, Total 130 0 - 200 EXTERNAL LAB SCRIBED HDL 56 NA - >35 EXTERNAL LAB SCRIBED LDL 45 NA - <130 EXTERNAL LAB SCRIBED Triglycerides 123 NA - <150 EXTERNAL LAB Blood 07/06/2022 1:48 PM CDT Historical Provider LAB BLOOD ORDERABLES Edit ed Result - Final EXTERNAL LAB * Hemoglobin A1c (07/06/2022 1:48 PM CDT) SCRIBED Hemoglobin A1c 5.4 NA - <5.7 % EXTERNAL LAB Blood 07/06/2022 1:48 PM CDT Historical Provider LAB BLOOD ORDERABLES Edit ed Result - Final EXTERNAL LAB documented in this encounter Visit Diagnoses Not on filedocumented in this encounter Care Teams Cad Specialist Relationship Specialty Start Date End Date Tyler Berger MD [address] [facility] [address] [place], [place] [id number] PCP - General 08/12/16 documented as of this encounter
--- OUTSIDE RECORDS SUMMARY | 2024-02-14 13:38 | XMS_ITS | Encounter Summary ---
Author Organization [facility] Medical [facility] Address [address] [facility] [address] [place] [address] Care Team Providers Care Saw Sharpener Name Role Phone Tyler Berger MD Primary Care Provider [phone] Reason for Visit * Reason Onset Date Comments verify insurance 10/10/2022 Encounter Details Date Type Department Care Team (Late st Contact Info) Description 10/10/2022 Telephone [facility] Diabetes and Endocrinology [address] [place] [phone] [place] [address] [address] verify insurance Social History Tobacco Use Types Packs/Day Years [...] * Telephone Encounter - En Aguirre. - 10/10/2022 1:50 PM CDT Follow Up Call Caller/Ph#: Patient [phone] Reason for call: The patient called the office with the new insurance information and it has been added to [employer] with the RTE verified. * Telephone Encounter - Tri Gonzalez - 10/10/2022 12:45 PM CDT Patient is scheduled for appointment on 10/15/22 Unable to verify insurance called patient lmom to return call and update insurance information documented in this encounter Plan of Treatment Not on file documented as of this encounter Visit Diagnoses Not on filedocumented in this encounter Care Teams Saw Sharpener Relationship Specialty Start Date End Date Tyler Berger MD [address] [facility] [address] [facility] [address] [place] [address] PCP - General 08/12/16 documented as of this encounter
--- OUTSIDE RECORDS SUMMARY | 2024-02-14 13:38 | XMS_ITS | Encounter Summary ---
Author Organization [facility] Medical [facility] Address [address] [address] Care Team Providers Care Cordwood Cutter Name Role Phone Tyler Berger MD Primary Care Provider [phone] Encounter Details Date Type Department Care Team (Late st Contact Info) Description 08/07/2018 Orders Only [facility] [address] [address] Georgette Ji RMA Social History Tobacco Use Types Packs/Day Years Used Date Smoking Tobacco: Never Smokeless Tobacco: Never Comments Unknown Sex and Gender Information Value Date Recorded Sex Assigned at Not on file Legal Sex Female 1:26 PM CDT Gender Identity Not on file Sexual Orientation Not on file documented as of this encounter Plan of Treatment Not on file documented as of this encounter Visit Diagnoses Not on filedocumented in this encounter Care Teams Cordwood Cutter Relationship Specialty Start Date End Date Tyler Berger MD [address] [place], [place] [phone] PCP - General 08/12/16 documented as of this encounter
--- OUTSIDE RECORDS SUMMARY | 2024-02-14 13:38 | XMS_ITS | Encounter Summary ---
Author Organization [facility] Care Team Providers Care Feed Preparation Operator Name Role Phone Tyler Berger MD Primary Care Provider Encounter Details Date Type Department Care Team (Latest Contact Info) Description 07/21/2018 Travel Social History Tobacco Use Types Packs/Day Years [...] on filedocumented in this encounter Care Teams Feed Preparation Operator Relationship Specialty Start Date End Date Tyler Berger MD [address] [facility] [address] [place] [address] PCP - General 08/12/16 documented as of this encounter
--- OUTSIDE RECORDS SUMMARY | 2024-02-14 13:38 | XMS_ITS | Encounter Summary ---
Author Organization [facility] Medical [facility] Address [address] [facility] [address] [place] [address] Care Team Providers Care Project Portfolio Analyst Name Role Phone Tyler Berger MD Primary Care Provider [phone] Reason for Visit * Reason Comments Hypothyroidism Encounter Details Date Type Department Care Team (Latest Contact Info) Description 07/20/2019 3:30 PM CDT Office Visit [facility] [place] [facility] Of [address] [phone] [place] [id number] [address] Acquired hypothyroidism (Primary Dx) Social History Tobacco Use Types Packs/Day Years Used Date Smoking Tobacco: Never Smokeless Tobacco: Never PHQ-2 Answer Date Recorded PHQ-2 Score 0 10/10/2018 Comments Unknown Sex and Gender Information Value Date Recorded Sex Assigned at Not on file Legal Sex Female 1:26 PM CDT Gender Identity Not on file Sexual Orientation Not on file documented as of this encounter Last Filed Vital Signs Vital Sign Reading Time Taken Comments Blood Pressure 120/80 07/20/2019 3:44 PM CDT Pulse 83 07/20/2019 3:44 PM CDT Temperature 36.2 ??C (97.1 ??F) 07/20/2019 3:44 PM CD T Respiratory Rate 16 07/20/2019 3:44 PM CDT Oxygen Saturation - - Inhaled Oxygen Concentration - - Weight 83.7 kg (184 lb 9.6 oz) 07/20/2019 3:44 P M CDT Height 165.1 cm (5' 5 ) 07/20/2019 3:44 PM CDT Body Mass Index 30.72 07/20/2019 3:44 PM CDT documented in this encounter Ordered Prescriptions Prescription Sig Dispense Quantity Refills Last Filled Start Date End Date levothyroxine (Synthroid) 75 mcg tablet Take 1 tablet (75 mcg total) by mouth daily 90 tablet 3 07/20/2019 07/18/2020 documented in this encounter Progress Notes * Luigi Gabriel MD - 07/20/2019 3:30 PM CDT Subjective/Objective Patient ID: En Pacheco is a 53 y.o. female. Chief Complaint Hypothyroidism HPI Postsurgical hypothyroidism On Synthroid 75 mcg daily; brand name Patient feeling fine, without any specific complaint She reports of blood test done recently with her primary care doctor but I do not have the results Review of Systems Constitutional: Negative for activity change and fatigue. HENT: Negative for congestion, hearing loss, trouble swallowing and voice change. Eyes: Negative for redness and visual disturbance. Respiratory: Negative for apnea, cough and chest tightness. Cardiovascular: Negative for chest pain, palpitations and leg swelling. Gastrointestinal: Negative for abdominal distention, abdominal pain, constipation, diarrhea and nausea. Endocrine: Negative for cold intolerance, heat intolerance, polydipsia, polyphagia and polyuria. Genitourinary: Negative for difficulty urinating, frequency and urgency. Musculoskeletal: Negative for arthralgias, back pain, gait problem and neck pain. Skin: Negative for color change. Allergic/Immunologic: Negative for food allergies. Neurological: Negative for dizziness, tremors, syncope, weakness, light- headedness and headaches. Hematological: Negative for adenopathy. Psychiatric/Behavioral: Negative for sleep disturbance. The patient is not nervous/anxious. Physical Exam Constitutional: Appearance: She is well-developed. HENT: Head: Normocephalic and atraumatic. Eyes: Conjunctiva/sclera: Conjunctivae normal. Pupils: Pupils are equal, round, and reactive to light. Neck: Thyroid: No thyroid mass or thyromegaly. Trachea: Trachea and phonation normal. Cardiovascular: Rate and Rhythm: Normal rate and regular rhythm. Heart sounds: Normal heart sounds. No murmur. Pulmonary: Effort: Pulmonary effort is normal. Breath sounds: Normal breath sounds. Abdominal: General: Bowel sounds are normal. There is no distension. Palpations: Abdomen is soft. Musculoskeletal: Normal range of motion. Skin: General: Skin is warm. Neurological: Mental Status: She is alert and oriented to person, place, and time. Coordination: Coordination normal. Deep Tendon Reflexes: Reflexes are normal and symmetric. Reflexes normal. Comments: No tremors Psychiatric: Behavior: Behavior normal. Assessment/Plan Diagnoses and all orders for this visit: Acquired hypothyroidism (E03.9) (Primary) Assessment & Plan: Will get report of a thyroid function test done recently Continue levothyroxine at current dose, brand Importance of taking the medication in the mornings on an empty stomach at least an hour apart fromfood was explained Other orders - levothyroxine (Synthroid) 75 mcg tablet; Take 1 tablet (75 mcg total) by mouth daily documented in this encounter Miscellaneous Notes * Assessment & Plan Note - Luigi Gabriel MD - 07/20/2019 4:14 PM CDTAssociated Problem(s): Acquired hypothyroidism Will get report of a thyroid function test done recently Continue levothyroxine at current dose, brand Importance of taking the medication in the mornings on an empty stomach at least an hour apart fromfood was explained documented in this encounter Plan of Treatment Not on file documented as of this encounter Visit Diagnoses Diagnosis Acquired hypothyroidism- Primary Unspecified hypothyroidism documented in this encounter Discontinued Medications Medication Sig Discontinue Reason Start Date End Da te estradiol (VAGIFEM) 10 mcg tablet Insert into the vagina. Formulary change 07/20/2019 levothyroxine (Synthroid) 75 mcg tablet Take 1 tablet (75 mcg total) by mouth daily Reorder 04/28/2019 07/20/2019 documented as of this encounter Historical Medications * This list may reflect changes made after this encounter. multivitamin capsule Take 1 capsule by mouth daily ascorbic acid (ascorbic acid with richy hips) 500 mg tablet,chewable Take 1 tablet/chew tab (500 mg total) by mouth daily calcium carbonate-vitami n D3 500 mg(1,250mg) -400 unit chewable tablet Take 2 tablets by mouth daily cyanocobalamin (Vitamin B-12) 1,000 mcg tabletIndication s:Prevention of Vitamin B12 Deficiency Take 1 tablet (1,000 mcg total) by mouth daily folic acid 0.8 mg capsule Take 800 mcg by mouth daily cholecalciferol (VITAMIN D-3) 1,000 unit capsule Take 2 capsules (2,000 Units total) by mouth daily [id number] ndroit-vit D3 750 mg-125 mg -600 mg tablet Take 1 tablet by mouth daily zinc 50 mg tablet Take 1 tablet by mouth daily rosuvastatin (CRESTOR) 20 mg tablet Take 1 tablet (20 mg total) by mouth daily 06/27/2019 icosapent ethyL (VASCEPA) 1 gram capsule Take 2 g by mouth daily 10/16/2021 added in this encounter Care Teams Project Portfolio Analyst Relationship Specialty Start Date End Date Tyler Berger MD [address] [facility] [address] [place] [address] PCP - General 08/12/16 documented as of this encounter
--- OUTSIDE RECORDS SUMMARY | 2024-02-14 13:38 | XMS_ITS | Encounter Summary ---
Author Organization [facility] Medical [facility] Address [address] [facility] [address] [place] [address] Care Team Providers Care Supervisor Floor Assembly Name Role Phone Tyler Berger MD Primary Care Provider [phone] Reason for Visit * Reason Comments Hypothyroidism Encounter Details Date Type Department Care Team (Latest Contact Info) Description 12/25/2017 3:30 PM VINYL CUTTER [place] [facility] [place] [facility] [place] [address] [phone] [place] [phone] [address] Acquired hypothyroidism (Primary Dx) Social [...] Sign Reading Time Taken Comments Blood Pressure 120/70 12/25/2017 3:39 PM VINYL CUTTER Pulse 65 12/25/2017 3:39 PM VINYL CUTTER Temperature - - Respiratory Rate 12 12/25/2017 3:39 PM VINYL CUTTER Oxygen Saturation - - Inhaled Oxygen Concentration - - Weight 82.6 kg (182 lb) 12/25/2017 3:39 PM VINYL CUTTER Height - - Body Mass Index 30.29 08/21/2017 9:06 AM CDT documented in this encounter Progress Notes * Luigi Gabriel MD - 12/25/2017 3:30 PM CST Subjective/Objective Patient ID: En Pacheco is a 52 y.o. female. Chief Complaint Hypothyroidism HPI On Synthroid , lowered to 75 mcg since last carmina Feeling better, less fatigue,more focused. Review of Systems Constitutional: Negative for activity change and fatigue. HENT: Negative for congestion, hearing loss, trouble swallowing and voice change. Eyes: Negative for redness and visual disturbance. Respiratory: Negative for apnea, cough and chest tightness. Cardiovascular: Negative for chest pain, palpitations and leg swelling. Gastrointestinal: Positive for abdominal pain. Negative for abdominal distention, constipation, diarrhea and nausea. Endocrine: Negative for [...] patient is not nervous/anxious. Physical Exam Constitutional: She is oriented to person, place, and time. She appears well-developed. HENT: Head: Normocephalic and atraumatic. Eyes: Pupils are equal, round, and reactive to light. Conjunctivae and EOM are normal. Neck: Trachea normal and phonation normal. No thyroid mass and no thyromegaly present. Cardiovascular: Normal rate, regular rhythm and normal heart sounds. No murmur heard. Pulmonary/Chest: Effort normal and breath sounds normal. Abdominal: Soft. Bowel sounds are normal. She exhibits no distension. Musculoskeletal: Normal range of motion. Neurological: She is alert and oriented to person, place, and time. She has normal reflexes. She displays normal reflexes. Coordination normal. Reflex Scores: Patellar reflexes are 2+ on the right side and 2+ on the left side. Achilles reflexes are 2+ on the right side and 2+ on the left side. No tremors Skin: Skin is warm. Psychiatric: She has a normal mood and affect. Her behavior is normal. Assessment/Plan Diagnoses and all orders for this visit: Acquired hypothyroidism (E03.9) (Primary) Assessment & Plan: Will check TSH and free T4 Will adjust dose of Levothyroxine accordingly . If there is a need to make changes, will recheck levels in 2-3 months. Instructions to patient on taking medication properly : in the morning, on an empty stomach , 1 h part from food and/or other meds. If any doses are missed, can take 2-3 tab together ,to make up for the missed dose; make sure at the end to the week, 7 tabs have been taken. Orders: - TSH; Future - T4, free; Future L CUTTER documented in this encounter Miscellaneous Notes * Assessment & Plan Note - Luigi Gabriel MD - 12/25/2017 4:07 PM CSTAssociated Problem(s): Acquired hypothyroidism Will check TSH and free T4 Will adjust dose of Levothyroxine accordingly . If there is a need to make changes, will recheck levels in 2-3 months. Instructions to patient on taking medication properly : in the morning, on an empty stomach , 1 h part from food and/or other meds. If any doses are missed, can take 2-3 tab together ,to make up for the missed dose; make sure at the end to the week, 7 tabs have been taken. L CUTTER documented in this encounter Plan of Treatment Not on file documented as of this encounter Results * TSH (01/17/2018) Scribed TSH 0.67 0.47 - 4.68 mcU/mL DONALDO KUMAR Blood specimen (specimen) 01/17/2018 us Luigi Gabriel MD LAB BLOOD ORDERABLES Final Resul t DONALDO KUMAR [id number] [place] [address] documented in this encounter Visit Diagnoses Diagnosis Acquired hypothyroidism- Primary Unspecified hypothyroidism documented in this encounter Care Teams Supervisor Floor Assembly Relationship Specialty Start Date End Date Tyler Berger MD [address] [facility] [address] [place] [address] PCP - General 08/12/16 documented as of this encounter
--- OUTSIDE RECORDS SUMMARY | 2024-02-14 13:38 | XMS_ITS | Encounter Summary ---
Author Organization [facility] Medical [facility] Address [address] [facility] [address] [place] [address] Care Team Providers Care Hand Touch Up Painter Name Role Phone Tyler Berger MD Primary Care Provider [phone] Reason for Visit * Reason Comments Hypothyroidism Encounter Details Date Type Department Care Team (Latest Contact Info) Description 07/21/2018 9:00 AM CDT Office [facility] [place] Special[facility] Of [address] [phone] [place] [id number] [address] Acquired hypothyroidism (Primary Dx) Social [...] Sign Reading Time Taken Comments Blood Pressure 120/82 07/21/2018 9:06 AM CDT Pulse 64 07/21/2018 9:06 AM CDT Temperature - - Respiratory Rate 12 07/21/2018 9:06 AM CDT Oxygen Saturation - - Inhaled Oxygen Concentration - - Weight 81.6 kg (180 lb) 07/21/2018 9:06 AM CDT Height 165.1 cm (5' 5 ) 07/21/2018 9:06 AM CDT Body Mass Index 29.95 07/21/2018 9:06 AM CDT documented in this encounter Progress Notes * Luigi Gabriel MD - 07/21/2018 9:00 AM CDT Subjective/Objective Patient ID: En Pacheco is a 52 y.o. female. Chief Complaint Hypothyroidism HPI Postsurgical hypothyroidism On Synthroid 75 mcg daily; brand name TSH Jan 2018, 0.67 . Review of Systems Constitutional: Negative for activity change and fatigue. HENT: Negative for congestion, hearing loss, trouble swallowing and voice change. Eyes: Negative for redness and visual disturbance. Respiratory: Negative for apnea, cough and chest tightness. Cardiovascular: Negative for chest pain, palpitations and leg swelling. Gastrointestinal: Negative for abdominal distention, abdominal pain, constipation, diarrhea and nausea. Dyspepsia, started on sucralfate a few weeks ago Endocrine: Negative for cold intolerance, heat intolerance, [...] reflexes. She displays normal reflexes. Coordination normal. No tremors Skin: Skin is warm. Psychiatric: [...] the week, 7 tabs have been taken. [facility] ( or pt will find out if it is cheaper at the local pharmacy ) Orders: - TSH; Future - T4, free; Future documented in this encounter Miscellaneous Notes * Assessment & Plan Note - Luigi Gabriel MD - 07/21/2018 9:24 AM CDTAssociated Problem(s): Acquired hypothyroidism Will check TSH and [...] the week, 7 tabs have been taken. [facility] ( or pt will find out if it is cheaper at the local pharmacy ) documented in this encounter Plan of Treatment Scheduled Orders Name Type Priority Associated Diagnoses Orde r Schedule TSH Lab Routine Acquired hypothyroidism 1 Occurrences starting 07/21/2018 until 07/22/2019 T4, free Lab Routine Acquired hypothyroidism 1 Occurrences starting 07/21/2018 until 07/22/2019 documented as of this encounter Visit Diagnoses Diagnosis Acquired hypothyroidism- Primary Unspecified hypothyroidism documented in this encounter Historical Medications * This list may reflect changes made after this encounter. fluticasone propionate (FLONASE) 50 mcg/actuation nasal spray Administer 1 spray into each nostril daily cetirizine (ZyrTEC) 10 mg tablet TK 1 T PO D 0 04/13/2018 sucralfate (CARAFATE) 1 gram tablet TK 1 TO 2 TS PO BID ON AN EMPTY STOMACH 1 HOUR B MEALS AND HS 0 07/03/2018 added in this encounter Care Teams Hand Touch Up Painter Relationship Specialty Start Date End Date Tyler Berger MD [address] [facility] [address] [place] [address] PCP - General 08/12/16 documented as of this encounter
--- OUTSIDE RECORDS SUMMARY | 2024-02-14 13:38 | XMS_ITS | Encounter Summary ---
Author Organization [facility] Medical Group Address [address] [address] Care Team Providers Care Agriculture Research Director Name Role Phone Tyler Berger MD Primary Care Provider [phone] Reason for Visit * Reason Onset Date Comments Med Management 08/27/2017 Brand Thyroid Me d Encounter Details Date Type Department Care Team (Late st Contact Info) Description 08/27/2017 Telephone [facility] [place] [facility] Of [address] [phone] Aihsa Love MA Med Management (Brand Thyroid Med) Social History Tobacco Use Types Packs/Day Years Used Date Smoking Tobacco: Never Smokeless Tobacco: Never Comments Unknown Sex and Gender Information Value Date Recorded Sex Assigned at Not on file Legal Sex Female 1:26 PM CDT Gender Identity Not on file Sexual Orientation Not on file documented as of this encounter Miscellaneous Notes * Telephone Encounter - Georgette Ji MA - 08/27/2017 4:03 PM CDT Spoke to pt she gave verbal understanding * Telephone Encounter - Luigi Gabriel MD - 08/27/2017 1:32 PM CDT Thyroid levels are a little high Lower Synthroid to 75 mcg brand rx was sent to [facility] * Telephone Encounter - Aisha Love - 08/27/2017 1:21 PM CDT Patient called wanting to know if we received her labs. Informed patient that we have received her labs and that they have been forwarded to the doctor. Patient also wanted to remind you that you wanted her to have the brand of the levothyroxine and that will need to be sent to [facility]. documented in this encounter Plan of Treatment Not on file documented as of this encounter Visit Diagnoses Not on filedocumented in this encounter Care Teams Agriculture Research Director Relationship Specialty Start Date End Date Tyler Berger MD [address] [facility] [address] [place] [address] PCP - General 08/12/16 documented as of this encounter
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
--- OUTSIDE RECORDS SUMMARY | 2024-02-14 13:38 | XMS_ITS | Encounter Summary ---
Author Organization [facility] Address [address] [place] [address] Care Team Providers Care Regional Facilities Manager Name Role Phone Tyler Berger MD Primary Care Provider [phone] Reason for Visit * Reason Comments Hypothyroidism Encounter Details Date Type Department Care Team (Latest Contact Info) Description 10/16/2021 2:30 PM CDT Office Visit [facility] Diabetes and Endocrinology [address] [place] [phone] [place] [address] [address] Acquired hypothyroidism (Primary Dx) Social History Tobacco Use Types Packs/Day Years Used Date Smoking Tobacco: Never Smokeless Tobacco: Never Tobacco Cessation:Counseling Given: Not Answered PHQ-2 Answer Date Recorded PHQ-2 Total Score [...] Sign Reading Time Taken Comments Blood Pressure 122/78 10/16/2021 2:40 PM CDT Pulse 77 10/16/2021 2:40 PM CDT Temperature - - Respiratory Rate 16 10/16/2021 2:40 PM CDT Oxygen Saturation - - Inhaled Oxygen Concentration - - Weight 87 kg (191 lb 11.2 oz) 10/16/2021 2:40 PM CDT Height 165.1 cm (5' 5 ) 10/16/2021 2:40 PM CDT Body Mass Index 31.9 10/16/2021 2:40 PM CDT documented in this encounter Ordered Prescriptions Prescription Sig Dispense Quantity Refills Last Filled Start Date End Date Synthroid 75 mcg tablet Take 1 tablet (75 mcg total) by mouth daily 90 tablet 3 10/16/2021 10/25/2021 documented in this encounter Progress Notes * Luigi Gabriel MD - 10/16/2021 2:30 PM CDT Subjective/Objective Patient ID: En Pacheco is a 55 y.o. female. Chief Complaint Hypothyroidism HPI On Levothyroxine, taking it regularly. Feeling better No specific complaints. Labs done recently , showed normal TFT's ( scanned in ) Review of Systems Constitutional: Negative for activity [...] rhythm. Heart sounds: Normal heart sounds. No murmur heard. Pulmonary: Effort: Pulmonary effort is normal. Breath sounds: Normal breath sounds. Abdominal: General: There is no distension. Palpations: Abdomen is soft. Musculoskeletal: General: Normal range of motion. Skin: General: Skin is warm. Neurological: Mental Status: She is alert and oriented to person, place, and time. Motor: Motor function is intact. Psychiatric: Behavior: Behavior normal. Assessment/Plan Diagnoses and all orders for this visit: Acquired hypothyroidism (E03.9) (Primary) Assessment & Plan: Continue Synthroid at current dose. Other orders - Synthroid 75 mcg tablet; Take 1 tablet (75 mcg total) by mouth daily documented in this encounter Miscellaneous Notes * Assessment & Plan Note - Luigi Gabriel MD - 10/16/2021 3:44 PM CDTAssociated Problem(s): Acquired hypothyroidism Continue Synthroid at current dose. documented in this encounter Plan of Treatment Not on file documented as of this encounter Visit Diagnoses Diagnosis Acquired hypothyroidism- Primary Unspecified hypothyroidism documented in this encounter Discontinued Medications Medication Sig Discontinue Reason Start Date End Da te icosapent ethyL (VASCEPA) 1 gram capsule Take 2 g by mouth daily Therapy completed 10/16/2021 levothyroxine (Synthroid) 75 mcg tablet Take 1 tablet (75 mcg total) by mouth daily Formulary change 09/25/2021 10/16/2021 documented as of this encounter Historical Medications * This list may reflect changes made after this encounter. Xifaxan 550 mg tablet 10/15/2021 10/15/2022 amoxicillin (AMOXIL) 875 mg tablet Take 875 mg by mouth every 12 (twelve) hours 09/17/2021 10/15/2022 added in this encounter Care Teams Regional Facilities Manager Relationship Specialty Start Date End Date Tyler Berger MD [address] [place] [address] [place] [place] [id number] PCP - General 08/12/16 documented as of this encounter
--- OUTSIDE RECORDS SUMMARY | 2024-02-14 13:38 | XMS_ITS | Clinical Summary ---
Author Organization [facility] [address] [place] [phone] Care Team Providers Care Manager Practice Name Role Phone Tyler Berger MD Primary Care Provider [phone] Allergies Active Allergy Reactions Criticality Noted Date Comments Acetaminophen Medications ESTRACE 0.01 % (0.1 mg/gram) vaginal cream 8 Active dicyclomine (BENTYL) 10 mg capsule Active sucralfate (CARAFATE) 1 gram tablet TK 1 TO 2 TS PO BID ON AN EMPTY STOMACH 1 HOUR B MEALS AND HS 0 9 Active cetirizine (ZyrTEC) 10 mg tablet TK 1 T PO D 0 9 Active fluticasone propionate (FLONASE) 50 mcg/actuation nasal spray Administer 1 spray into each nostril daily Active rosuvastatin (CRESTOR) 20 mg tablet Take 1 tablet (20 mg total) by mouth daily 0 Active zinc 50 mg tablet Take 1 tablet by mouth daily Active hgtqhgjm-azd-ms ondroit-vit D3 750 mg-125 mg -600 mg tablet Take 1 tablet by mouth daily Active cholecalciferol (VITAMIN D-3) 1,000 unit capsule Take 2 capsules (2,000 Units total) by mouth daily Active folic acid 0.8 mg capsule Take 800 mcg by mouth daily Active cyanocobalamin (Vitamin B-12) 1,000 mcg tabletIndicatio ns:Prevention of Vitamin B12 Deficiency Take 1 tablet (1,000 mcg total) by mouth daily Active calcium carbonate-vitam in D3 500 mg(1,250mg) -400 unit chewable tablet Take 2 tablets by mouth daily Active ascorbic acid (ascorbic acid with richy hips) 500 mg tablet,chewable Take 1 tablet/chew tab (500 mg total) by mouth daily Active multivitamin capsule Take 1 capsule by mouth daily Active omega-3 fatty acids-fish oil 300-500 mg capsule Take by mouth Active Vagifem 10 mcg tablet INSERT 1 TABLET VAGINALLY TWICE A WEEK 3 Active levothyroxine (Synthroid) 75 mcg tablet Take 1 tablet (75 mcg total) by mouth daily 90 tablet 3 3 Active Active Problems Problem Noted Date Diagnosed Date Acquired hypothyroidism 08/21/2017 Assessment & Plan (10/15/2022 4:03 PM CDT): Chronic, well controlled Continue Synthroid 75 mcg daily ( Pt will have TSH done recently sent to us ) Assessment & Plan (10/16/2021 3:44 PM CDT): Continue Synthroid at current dose. Assessment & Plan (07/18/2020 4:34 PM CDT): Continue levothyroxine at current dose, as brand Synthroid Importance of taking the medication on an empty stomach, 1- 2 hours apart from food was also discussed Assessment & Plan (07/20/2019 4:14 PM CDT): Will get report of a thyroid function test done recently Continue levothyroxine at current dose, brand Importance of taking the medication in the mornings on an empty stomach at least an hour apart from food was explained Assessment & Plan (07/21/2018 9:26 AM CDT): Will check TSH and free T4 Will [...] is cheaper at the local pharmacy ) Assessment & Plan (12/25/2017 4:07 PM GLOBAL COMPENSATION DIRECTOR): Will check TSH and free T4 Will [...] the week, 7 tabs have been taken. Assessment & Plan (08/21/2017 11:02 AM CDT): Your goal of treatment is to keep TSH and free T4 within normal range. Take your thyroid medication on empty stomach, preferably in the morning, 1 hour apart from food and other medications. Due to the narrow therapeutic range of Levothyroxine ( small changes in dose make a big difference on thyroid medication blood levels ) , brand name is strongly recommended. The medication should be taken daily. If one or more pills are missing in a week, they can be taken all together at once, making sure at the end of the week, all 7 tabs have been taken. 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/30/2016 Deviated nasal septum 09/30/2016 Chronic rhinitis 09/30/2016 Surgical History Surgery Date Site/Laterality Comments RADICAL HYSTERECTOMY Radical Hysterectomy - (Added by TW Conv) Medical History Medical History Date Comments Allergy status to unspecifie d drugs, medicaments and biological substances status History of seasonal allergie s - (Added by TW Conv) Personal history of other en docrine, nutritional and metabolic disease History of thyroid d isorder - (Added by TW Conv) Medial meniscus tear Family History Medical History Relation Name Comments Ovarian cancer Other 1 Family histor y of malignant neoplasm of ovary - (Added by TW Conv) Prostate cancer Other 2 Family histo ry of malignant neoplasm of prostate - (Added by TW Conv) Leukemia Other 3 Family history of leukemia - (Added by TW Conv) Hypertension Other 4 Family history of hypertension - (Added by TW Conv) Heart disease Other 5 Family history of cardiac disorder - (Added by TW Conv) Relation Name Status Comments Other 1 Other 2 Other 3 Other 4 Other 5 Social History Tobacco Use Types Packs/Day Years Used Date Smoking Tobacco: Never Smokeless Tobacco: Never PHQ-2 Answer Date Recorded PHQ-2 Total Score (If total score is 3 or more points, staff should administer the PHQ-9) 0 10/16/2021 Personal Safety Answer Date Recorded Getting School Help Needed Not on file 05/03 Comments Unknown Sex and Gender Information Value Date Recorded Sex Assigned at Not on file Legal Sex Female 1:26 PM CDT Gender Identity Not on file Sexual Orientation Not on file Obstetrics History Last Filed Vital Signs Vital Sign Reading Time Taken Comments Blood Pressure 138/80 10/15/2022 3:33 PM CDT Pulse 61 10/15/2022 3:33 PM CDT Temperature 36.2 ??C (97.1 ??F) 07/20/2019 3:44 PM CD T Respiratory Rate 16 10/15/2022 3:33 PM CDT Oxygen Saturation - - Inhaled Oxygen Concentration - - Weight 82.1 kg (181 lb) 10/15/2022 3:33 PM CDT Height 165.1 cm (5' 5 ) 10/15/2022 3:33 PM CDT Body Mass Index 30.12 10/15/2022 3:33 PM CDT Plan of Treatment Health Maintenance Due Date Last Done Comments Breast Cancer Screening-Mammogram 1965 Cervical Cancer Screening 1965 Colon Cancer Screening-Colonoscopy 1965 Hepatitis C Screening 1965 DTaP/Tdap/Td Vaccine (1 - Tdap) 11/16/1974 Hepatitis B Screening 11/16/1981 Regular Well Visit/Exam 18-64 11/16/1981 Zoster Vaccine (1 of 2) 11/16/2013 Depression Screening 10/16/2022 10/16/2021, 07/18/2020, 07/21/2018, Additional history exists Influenza Vaccine (#1) 2023 12/11/2019 Pneumococcal vaccine <65 Aged Out No longer eligible based on patient's age to complete this topic Insurance [employer] ACC[employer]ICE [employer] CHOICE Care Teams Manager Practice Relationship Specialty Start Date End Date Tyler Berger MD [address] [place] [address] [place] [address] PCP - General 08/12/16
--- OUTSIDE RECORDS SUMMARY | 2024-02-14 13:38 | XMS_ITS | Encounter Summary ---
Author Organization [facility] Address [address] [facility] [address] [place] [address] Care Team Providers Care It Application Architect Name Role Phone Tyler Berger MD Primary Care Provider Encounter Details Date Type Department Care Team (Late st Contact Info) Description 08/27/2017 Orders Only [facility] [id number] [place] [phone] [place] [id number] [place] [id number] Social History Tobacco Use Types Packs/Day Years Used Date Smoking Tobacco: Never Smokeless Tobacco: Never Comments Unknown Sex and Gender Information Value Date Recorded Sex Assigned at Not on file Legal Sex Female 1:26 PM CDT Gender Identity Not on file Sexual Orientation Not on file documented as of this encounter Ordered Prescriptions Prescription Sig Dispense Quantity Refills Last Filled Start Date End Date SYNTHROID 75 mcg tablet Take 1 tablet (75 mcg total) by mouth daily. 90 tablet 3 08/27/2017 08/03/2018 documented in this encounter Plan of Treatment Not on file documented as of this encounter Visit Diagnoses Not on filedocumented in this encounter Discontinued Medications Medication Sig Discontinue Reason Start Date End Da te levothyroxine (SYNTHROID, LEVOTHROID) 88 mcg tablet Dose adjustment 07/08/2017 08/27/2017 documented as of this encounter Care Teams It Application Architect Relationship Specialty Start Date End Date Tyler Begrer MD [address] [facility] [address] [place] [address] PCP - General 08/12/16 documented as of this encounter
--- OUTSIDE RECORDS SUMMARY | 2024-02-14 13:38 | XMS_ITS | Encounter Summary ---
Author Organization [facility] Healthcare Address [address] [place] [address] Care Team Providers Care Cryptologic Technician Technical Name Role Phone Tyler Berger MD Primary Care Provider [phone] Reason for Referral * Gastroenterology (Routine) - Closed Specialty Diagnoses / Procedures Referred By Alhaji t Referred To Contact Diagnoses Small intestinal bacterial overgrowth (SIBO) Procedures Breath test/hydrogen -Lactulose (SIBO) Keri Vargas NP [address] [place] [address] Phone: tel: fax: [place] [id number] [place] [address] Referral ID Status Reason Start Date Expiration Date Visits Re quested Visits Authorized [id number] Closed 08/07/2021 09/06/2022 1 1 Reason for Visit * Gastroenterology (Routine) - Closed Specialty Diagnoses / Procedures Referred By Contdk t Referred To Contact Diagnoses Small intestinal bacterial overgrowth (SIBO) Procedures Breath test/hydrogen -Lactulose (SIBO) Keri Vargas NP [address] [place] [address] Phone: tel: fax: [place] [address] [place] [address] Referral ID Status Reason Start Date Expiration Date Visits Re quested Visits Authorized [id number] Closed 08/07/2021 09/06/2022 1 1 Encounter Details Date Type Department Care Team (Latest Contact Info) Description 09/04/2021 6:33 AM CDT - 09/04/2021 11:59 PM CDT Hospital Encounter [facility] [address] [place] [id number] Small intestinal bacterial overgrowth (SIBO) Discharge Disposition: Discharge to home or self care Social History Tobacco Use Types Packs/Day Years [...] on file documented as of this encounter Medications at Time of Discharge ascorbic acid (ascorbic acid with richy hips) 500 mg tablet,chewable Take 1 tablet/chew tab (500 mg total) by mouth daily calcium carbonate-vitami n D3 500 mg(1,250mg) -400 unit chewable tablet Take 2 tablets by mouth daily cetirizine (ZyrTEC) 10 mg tablet TK 1 T PO D 0 04/13/2018 cholecalciferol (VITAMIN D-3) 1,000 unit capsule Take 2 capsules (2,000 Units total) by mouth daily cyanocobalamin (Vitamin B-12) 1,000 mcg tabletIndication s:Prevention of Vitamin B12 Deficiency Take 1 tablet (1,000 mcg total) by mouth daily dicyclomine (BENTYL) 10 mg capsule ESTRACE 0.01 % (0.1 mg/gram) vaginal cream 05/22/2017 fluticasone propionate (FLONASE) 50 mcg/actuation nasal spray Administer 1 spray into each nostril daily folic acid 0.8 mg capsule Take 800 mcg by mouth daily wivgvfex-ttf-mvs ndroit-vit D3 750 mg-125 mg -600 mg tablet Take 1 tablet by mouth daily multivitamin capsule Take 1 capsule by mouth daily omega-3 fatty acids-fish oil 300-500 mg capsule Take by mouth rosuvastatin (CRESTOR) 20 mg tablet Take 1 tablet (20 mg total) by mouth daily 06/27/2019 sucralfate (CARAFATE) 1 gram tablet TK 1 TO 2 TS PO BID ON AN EMPTY STOMACH 1 HOUR B MEALS AND HS 0 07/03/2018 zinc 50 mg tablet Take 1 tablet by mouth daily icosapent ethyL (VASCEPA) 1 gram capsule Take 2 g by mouth daily 2 Synthroid 75 mcg tablet TAKE 1 TABLET DAILY 60 tablet 07/27/2021 2 documented as of this encounter Discharge Disposition Disposition Code Departure Means Destination Discharge to home or self care documented in this encounter Plan of Treatment Not on file documented as of this encounter Procedures Procedure Name Priority Date/Time Associated Diagnosis Comments BREATH TEST/HYDROGEN Routine 09/10/2021 Small intestinal bacterial overgrowth (SIBO) documented in this encounter Results * Breath test/hydrogen (09/10/2021) Anatomical Region Laterality Modality Other us Keri Vargas [facility] SPECIALIST GI LAB PROCEDURE ORDERABLES F inal Result documented in this encounter Visit Diagnoses Diagnosis Small intestinal bacterial overgrowth (SIBO) documented in this encounter Care Teams Cryptologic Technician Technical Relationship Specialty Start Date End Date Tyler Berger MD [address] [place] [address] PCP - General 08/12/16 documented as of this encounter
--- OUTSIDE RECORDS SUMMARY | 2024-02-14 13:38 | XMS_ITS | Encounter Summary ---
Author Organization [facility] Healthcare Address [address] [place] [address] Care Team Providers Care Hand Shaker Name Role Phone Tyler Berger MD Primary Care Provider [phone] Reason for Referral * Diagnostic Imaging (Routine) - Closed Specialty Diagnoses / Procedures Referred By Contac t Referred To Contact Diagnoses Right knee pain, unspecified chronicity Procedures XR Knee [place] [address] [place] [address] Phone: tel: fax: [facility] [place] Referral ID Status Reason Start Date Expiration Date Visits Re quested Visits Authorized [id number] Closed 10/27/2020 11/26/2021 1 1 Reason for Visit * Diagnostic Imaging (Routine) - Closed Specialty Diagnoses / Procedures Referred By Alhaji t Referred To Contact Diagnoses Right knee pain, unspecified chronicity Procedures XR Knee [place] [address] [place] [address] Phone: tel: fax: [facility] Referral ID Status Reason Start Date Expiration Date Visits Re quested Visits Authorized [id number] Closed 10/27/2020 11/26/2021 1 1 Encounter Details Date Type Department Care Team (Latest Contact Info) Description 11/01/2020 8:57 AM CDT - 11/01/2020 11:59 PM CDT Hospital Encounter [facility] [address] [place] [address] [place] [address] [place] [address] Right knee pain, unspecified chronicity Discharge Disposition: Discharge to home or self [...] capsule Take 800 mcg by mouth daily newzulng-kbu-rgv ndroit-vit D3 750 mg-125 mg -600 mg [...] 75 mcg tablet TAKE 1 TABLET DAILY 90 tablet 3 08/01/2020 2 documented as of this encounter Discharge Disposition Disposition Code Departure Means Destination Discharge to home or self care documented in this encounter Plan of Treatment Not on file documented as of this encounter Procedures Procedure Name Priority Date/Time Associated Diagnosis Comments XR KNEE RIGHT 3 VIEWS Schedule Routine, Read Routine (OP Routine) 11/01/2020 9:10 AM CDT Right knee pain, unspecified chronicity documented in this encounter Results * XR Knee Right [...] Visit Diagnoses Diagnosis Right knee pain, unspecified chronicity documented in this encounter Care Teams Hand Shaker Relationship Specialty Start Date End Date Tyler Berger MD [address] [facility] [address] [facility] [address] [place] [address] PCP - General 08/12/16 documented as of this encounter
--- OUTSIDE RECORDS SUMMARY | 2024-02-14 13:38 | XMS_ITS | Encounter Summary ---
Author Organization [facility] Medical [facility] Address [address] [facility] [address] [place] [address] Care Team Providers Care Experimental Outboard Motors Mechanic Name Role Phone Tyler Berger MD Primary Care Provider [phone] Encounter Details Date Type Department Care Team (Late st Contact Info) Description 03/15/2022 Orders Only [facility] [address] [facility] [address], [place] [address] [place] [address] [facility] [address], [place] [address] Social History Tobacco Use Types Packs/Day [...] Procedure Name Priority Date/Time Associated Diagnosis Comments T3, FREE Routine 06/15/2021 T4, FREE Routine 06/15/2021 documented in this encounter Results * T3, free (06/15/2021) Blood Luigi Gabriel MD LAB BLOOD ORDERABLES Edited Resu lt - Final [facility] * T4, free (06/15/2021) SCRIBED T4, Free 1.49 0.82 - 1.77 mcg/dL [facility] Blood Luigi Gabriel MD LAB BLOOD ORDERABLES Edited Resu lt - Final Performing Organization Address [facility] Co de Phone Number [facility] documented in this encounter Visit Diagnoses Not on filedocumented in this encounter Care Teams Experimental Outboard Motors Mechanic Relationship Specialty Start Date End Date Tyler Berger MD [address] [facility] [address] [place], [place] [id number] PCP - General 08/12/16 documented as of this encounter
--- OUTSIDE RECORDS SUMMARY | 2024-02-14 13:38 | XMS_ITS | Encounter Summary ---
Author Organization [facility] Medical Group Address [address] [facility] [address] [place] [address] Care Team Providers Care Chemical Research Worker Name Role Phone Tyler Berger MD Primary Care Provider [phone] Encounter Details Date Type Department Care Team (Late st Contact Info) Description 01/28/2018 Orders Only [facility] [address] [address] Georgette Ji RMA Acquired hypothyroidism Social History Tobacco Use Types Packs/Day Years [...] Procedure Name Priority Date/Time Associated Diagnosis Comments TSH Routine 01/17/2018 Acquired hypothyroidism documented in this encounter Results * TSH (01/17/2018) Scribed TSH 0.67 0.47 - 4.68 mcU/mL [facility] Blood specimen (specimen) 01/17/2018 us Luigi Gabriel MD LAB BLOOD ORDERABLES Final Resul t DONALDO [address] Department [place] [address] documented in this encounter Visit Diagnoses Diagnosis Acquired hypothyroidism Unspecified hypothyroidism documented in this encounter Care Teams Chemical Research Worker Relationship Specialty Start Date End Date Tyler Berger MD [address] [place] [address] PCP - General 08/12/16 documented as of this encounter
--- OUTSIDE RECORDS SUMMARY | 2024-02-14 13:38 | XMS_ITS | Encounter Summary ---
Author Organization [facility] Address [address] [facility] [address] [place] [address] Care Team Providers Care Hospital Aide Name Role Phone Tyler Berger MD Primary Care Provider [phone] Reason for Visit * Reason Onset Date Comments [facility] Form 04/21/2019 Encounter Details Date Type Department Care Team (Late st Contact Info) Description 04/21/2019 Telephone [facility] [address] [address] [place] [id number] [place] [address] [facility] Form Social History Tobacco Use Types Packs/Day Years [...] mcg total) by mouth daily 90 tablet 04/28/2019 07/20/2019 Synthroid 75 mcg tablet Take 1 tablet (75 mcg total) by mouth daily 90 tablet 04/23/2019 04/28/2019 documented in this encounter Miscellaneous Notes * Addendum Note - Jevon Arenas - 04/28/2019 11:29 AM CDTAddended by: JEVON ARENAS on: 04/28/2019 11:29 AM Modules accepted: Orders * Telephone Encounter - Jevon Arenas - 04/28/2019 11:26 AM CDT Adriana [facility] benefits office called stating insurance will not cover synthroid if we click dispense as written resubmitted without dispense as written checked and resent to [facility] * Addendum Note - Jevon Arenas - 04/23/2019 12:48 PM CSTAddended by: JEVON ARENAS on: 04/23/2019 12:48 PM Modules accepted: Orders OGRAPHER HELPER * Telephone Encounter - Jevon Arenas - 04/23/2019 12:47 PM CST Pt was able to get synthroid approve [facility] sent to [facility] and let them know she can only take brand OGRAPHER HELPER * Telephone Encounter - Jevon Arenas - 04/22/2019 11:50 AM CST Pt states that Dr. Gabriel told her she could not be on generic synthroid because her levels usually are all over the place but insurance denied lower copay cost For pt medication and pt states she will need a letter for an appeal but she would like to speak to insurance first. OGRAPHER HELPER * Telephone Encounter - Ila Perdomo MA - 04/22/2019 10:29 AM CST Fax received from [facility] stating lower Co-pay request denied Denial scanned to pt's chart OGRAPHER HELPER * Telephone Encounter - Hina Klein - 04/21/2019 3:51 PM CST Incoming call from patient She said [facility] stating why patient needs to take name brand synthroid She is currently having to pay a penalty to receive Synthoid OGRAPHER HELPER documented in this encounter Plan of Treatment Not on file documented as of this encounter Visit Diagnoses Not on filedocumented in this encounter Discontinued Medications Medication Sig Discontinue Reason Start Date End Da te SYNTHROID 75 mcg tablet Take 1 tablet (75 mcg total) by mouth daily Reorder 08/07/2018 04/23/2019 Synthroid 75 mcg tablet Take 1 tablet (75 mcg total) by mouth daily Reorder 04/23/2019 04/28/2019 documented as of this encounter Care Teams Hospital Aide Relationship Specialty Start Date End Date Tyler Berger MD [address] [place] [address] PCP - General 08/12/16 documented as of this encounter
--- OUTSIDE RECORDS SUMMARY | 2024-02-14 13:38 | XMS_ITS | Referral Summary ---
Author Organization [facility] Physician Office Building [address] [place] [address] Care Team Providers Care Bonding Machine Operator Name Role Phone Tyler Berger MD Primary Care Provider [phone] Allergies Active Allergy Reactions Criticality Noted Date [...] Take 1 tablet by mouth daily Active gvqxyqoj-wbm-ti ondroit-vit D3 750 mg-125 mg -600 mg [...] ) Assessment & Plan (12/25/2017 4:07 PM BASKET BRAIDER): Will check TSH and free T4 Will [...] Deviated nasal septum 09/30/2016 Chronic rhinitis 09/30/2016 Social History Tobacco Use Types Packs/Day Years [...] on file Sexual Orientation Not on file Last Filed Vital Signs Vital Sign Reading [...] 10/15/2022 3:33 PM CDT Plan of Treatment Not on file Insurance [employer] CHOICE Member Subscriber Plan / Payer (Ef fective 2018-Present) Name:En Pacheco Member ID:[id number] Relation to Subscriber:Spouse Name:PARISH PACHECO Subscriber ID:[id number] Date of :1965 (Home) Address: [address] [place] [address] Payer ID:[id number] (NAIC) Type: ALLIANCE Address: [facility] [address] [place] [id number] Care Teams Bonding Machine Operator Relationship Specialty Start Date End Date Tyler Berger MD [address] [place] [address] PCP - General 08/12/16
--- OUTSIDE RECORDS SUMMARY | 2024-02-14 13:38 | XMS_ITS | Encounter Summary ---
Author Organization [facility] Medical Group Address [address] [facility] [address] [place] [address] Care Team Providers Care Phosphoric Acid Operator Name Role Phone Tyler Berger MD Primary Care Provider [phone] Encounter Details Date Type Department Care Team (Late st Contact Info) Description 08/26/2017 Orders Only [facility] [address] [address] Provider, MD Marta [address] [place] [address] Social History Tobacco Use Types Packs/Day Years [...] Procedure Name Priority Date/Time Associated Diagnosis Comments TSH+FREE T4 Routine 08/21/2017 11:05 AM CDT documented in this encounter Results * (ABNORMAL) TSH+Free T4 (08/21/2017 11:05 AM CDT) Scribed TSH 0.04(A) 0.47 - 4.68 mcU/mL EXTERNAL LAB SCRIBED T4, Free 1.38 0.78 - 2.19 mcg/dL EXTERNAL LAB Blood specimen (specimen) us Historical Provider LAB BLOOD ORDERABLES Edit ed Result - Final EXTERNAL LAB documented in this encounter Visit Diagnoses Not on filedocumented in this encounter Care Teams Phosphoric Acid Operator Relationship Specialty Start Date End Date Tyler Berger MD [address] [facility] [address] [place] [address] PCP - General 08/12/16 documented as of this encounter
--- OUTSIDE RECORDS SUMMARY | 2024-02-14 13:38 | XMS_ITS | Encounter Summary ---
Author Organization [facility] Medical Group Address [address] [facility] [address] [place] [address] Care Team Providers Care Engravings Polisher Name Role Phone Tyler Berger MD Primary Care Provider [phone] Reason for Visit * Reason Comments Hypothyroidism Encounter Details Date Type Department Care Team (Latest Contact Info) Description 10/15/2022 3:15 PM CDT Office Visit [facility] Diabetes and Endocrinology [address] [place] [phone] [place] [address] [address] Acquired hypothyroidism (Primary Dx) Social [...] Pulse 61 10/15/2022 3:33 PM CDT Temperature - - Respiratory Rate 16 10/15/2022 3:33 PM CDT Oxygen Saturation - - Inhaled Oxygen Concentration - - Weight 82.1 kg (181 lb) 10/15/2022 3:33 PM CDT Height 165.1 cm (5' 5 ) 10/15/2022 3:33 PM CDT Body Mass Index 30.12 10/15/2022 3:33 PM CDT documented in this encounter Ordered Prescriptions Prescription Sig Dispense Quantity Refills Last Filled Start Date End Date levothyroxine (Synthroid) 75 mcg tablet Take 1 tablet (75 mcg total) by mouth daily 90 tablet 3 10/15/2022 documented in this encounter Progress Notes * Luigi Gabriel MD - 10/15/2022 3:15 PM CDT Subjective/Objective Patient ID: En Pacheco is a 56 y.o. female. Chief Complaint Hypothyroidism HPI On Synthroid 75 mcg daily Getting brand name Taking it regularly , on an empty stomach Labs from Dec 2021, showed a TSH 1.3 Review of Systems Constitutional: Negative for activity [...] Acquired hypothyroidism (E03.9) (Primary) Assessment & Plan: Chronic, well controlled Continue Synthroid 75 mcg daily ( Pt will have TSH done recently sent to us ) documented in this encounter Miscellaneous Notes * Assessment & Plan Note - Luigi Gabriel MD - 10/15/2022 4:03 PM CDTAssociated Problem(s): Acquired hypothyroidism Chronic, well controlled Continue Synthroid 75 mcg daily ( Pt will have TSH done recently sent to us ) documented in this encounter Plan of Treatment Not on file documented as of this encounter Visit Diagnoses Diagnosis Acquired hypothyroidism- Primary Unspecified hypothyroidism documented in this encounter Discontinued Medications Medication Sig Discontinue Reason Start Date End Da te amoxicillin (AMOXIL) 875 mg tablet Take 875 mg by mouth every 12 (twelve) hours 09/17/2021 10/15/2022 Xifaxan 550 mg tablet 10/15/2021 10/15/2022 Synthroid 75 mcg tablet TAKE 1 TABLET DAILY Reorder 10/14/202209/18 documented as of this encounter Historical Medications * This list may reflect changes made after this encounter. Vagifem 10 mcg tablet INSERT 1 TABLET VAGINALLY TWICE A WEEK 09/27/2022 added in this encounter Care Teams Engravings Polisher Relationship Specialty Start Date End Date Tyler Berger MD [address] [place] [address] PCP - General 08/12/16 documented as of this encounter
--- OUTSIDE RECORDS SUMMARY | 2024-02-14 13:38 | XMS_ITS | Encounter Summary ---
Author Organization [facility] Medical Group Address [address] [facility] [address] [place] [address] Care Team Providers Care Splitting Machine Operator Name Role Phone Tyler Berger MD Primary Care Provider [phone] Reason for Visit * Reason Comments Hypothyroidism Encounter Details Date Type Department Care Team (Latest Contact Info) Description 07/18/2020 3:15 PM CDT Office Visit [facility] [address] [address] [place] [address] [address] Acquired hypothyroidism (Primary Dx) Social [...] Sign Reading Time Taken Comments Blood Pressure 122/92 07/18/2020 3:38 PM CDT Pulse 62 07/18/2020 3:38 PM CDT Temperature - - Respiratory Rate 12 07/18/2020 3:38 PM CDT Oxygen Saturation - - Inhaled Oxygen Concentration - - Weight 85.8 kg (189 lb 3.2 oz) 07/18/2020 3:38 P M CDT Height 165.1 cm (5' 5 ) 07/18/2020 3:38 PM CDT Body Mass Index 31.48 07/18/2020 3:38 PM CDT documented in this encounter Ordered Prescriptions Prescription Sig Dispense Quantity Refills Last Filled Start Date End Date levothyroxine (Synthroid) 75 mcg tablet Take 1 tablet (75 mcg total) by mouth daily 90 tablet 3 07/18/2020 08/01/2020 Synthroid 75 mcg tablet Take one tab By mouth 1 time a day Name brand only 90 tablet 1 07/18/2020 07/18/2020 documented in this encounter Progress Notes * Luigi Gabriel MD - 07/18/2020 3:15 PM CDT Subjective/Objective Patient ID: En Pacheco is a 54 y.o. female. Chief Complaint Hypothyroidism HPI Postsurgical hypothyroidism On Synthroid 75 mcg daily; brand name Patient feeling fine, without any specific complaint TSH in April 2020 0.3 ; it was 1.4 in Nov 2009 and in June 2019, 0.4 Review of Systems Constitutional: Negative for activity [...] hypothyroidism (E03.9) (Primary) Assessment & Plan: Continue levothyroxine at current dose, as brand Synthroid Importance of taking the medication on an empty stomach, 1- 2 hours apart from food was also discussed Other orders - levothyroxine (Synthroid) 75 mcg tablet; Take 1 tablet (75 mcg total) by mouth daily documented in this encounter Miscellaneous Notes * Assessment & Plan Note - Luigi Gabriel MD - 07/18/2020 4:33 PM CDTAssociated Problem(s): Acquired hypothyroidism Continue levothyroxine at current dose, as brand Synthroid Importance of taking the medication on an empty stomach, 1- 2 hours apart from food was also discussed documented in this encounter Plan of Treatment Not on file documented as of this encounter Visit Diagnoses Diagnosis Acquired hypothyroidism- Primary Unspecified hypothyroidism documented in this encounter Discontinued Medications Medication Sig Discontinue Reason Start Date End Da te Synthroid 75 mcg tablet Take one tab By mouth 1 time a day Name brand only 07/18/2020 07/18/2020 levothyroxine (Synthroid) 75 mcg tablet Take 1 tablet (75 mcg total) by mouth daily Reorder 07/20/2019 07/18/2020 documented as of this encounter Historical Medications * This list may reflect changes made after this encounter. omega-3 fatty acids-fish oil 300-500 mg capsule Take by mouth added in this encounter Care Teams Splitting Machine Operator Relationship Specialty Start Date End Date Tyler Berger MD [address] [place] [address] PCP - General 08/12/16 documented as of this encounter
--- OUTSIDE RECORDS SUMMARY | 2024-02-14 13:38 | XMS_ITS | Encounter Summary ---
Author Organization [facility] Address [address] [place] [address] Phone Care Team Providers Care Director Of Sales Name Role Phone Tyler Berger MD Primary Care Provider [phone] Encounter Details Date Type Department Care Team (Late st Contact Info) Description 11/06/2020 Telephone [facility] [address] [place] [address] Nesha Astorga BS Social History Tobacco Use Types Packs/Day Years [...] encounter Miscellaneous Notes * Telephone Encounter - Nesha Astorga BS - 11/06/2020 1:02 PM CDT Called patient today to let her know the knee brace that was ordered for her is in. She is off worknext week and would like to come then, she just doesn't know which day yet. She will call back in the next couple of days to schedule an appointment for this fitting. documented in this encounter Plan of Treatment Not on file documented as of this encounter Visit Diagnoses Not on filedocumented in this encounter Care Teams Director Of Sales Relationship Specialty Start Date End Date Tyler Berger MD [address] [facility] [address] [place] [id number] PCP - General 08/12/16 documented as of this encounter
--- OUTSIDE RECORDS SUMMARY | 2024-02-14 13:38 | XMS_ITS | Encounter Summary ---
Author Organization [facility] Address [address] [address] Care Team Providers Care Lute Packer Or Applier Name Role Phone Tyler Berger MD Primary Care Provider [phone] Encounter Details Date Type Department Care Team (Late st Contact Info) Description 10/17/2022 Orders Only [facility] Diabetes and Endocrinology [address] [place] [phone] Provider, MD Marta [address] [place] [address] Social History Tobacco Use Types Packs/Day Years [...] Procedure Name Priority Date/Time Associated Diagnosis Comments THYROXINE (T4) FREE, DIRECT, S Routine 01/05/2022 12:48 PM PACK TRAIN DRIVER VITAMIN D 25 HYDROXY Routine 01/05/2022 12:48 PM PACK TRAIN DRIVER HEMOGLOBIN A1C Routine 01/05/2022 12:48 PM PACK TRAIN DRIVER LIPID PANEL Routine 01/05/2022 12:48 PM PACK TRAIN DRIVER COMPREHENSIVE METABOLIC PANEL Routine 01/05/2022 12:48 PM PACK TRAIN DRIVER TSH Routine 01/05/2022 12:45 PM PACK TRAIN DRIVER documented in this encounter Results * (ABNORMAL) Comprehensive metabolic panel (01/05/2022 12:48 PM PACK TRAIN DRIVER) SCRIBED Sodium 137 137 - 145 mmol/L EXTERNAL LAB SCRIBED Potassium 4.0 3.4 - 5.0 mmol/L EXTERNAL LAB SCRIBED Chloride 103 98 - 107 mmol/L EXTERNAL LAB SCRIBED Carbon Dioxide 27 22 - 30 mmol/L EXTERNAL LAB SCRIBED Anion Gap 7(A) 8 - 16 mmol/L EXTERNAL LAB SCRIBED Urea Nitrogen (BUN) 12 7 - 17 mg/dl EXTERNAL LAB SCRIBED Creatinine 1.00 0.7 - 1.0 mg/dl EXTERNAL LAB SCRIBED Glucose 90 65 - 110 mg/dl EXTERNAL LAB SCRIBED Calcium 9.0 8.4 - 10.2 mg/dl EXTERNAL LAB SCRIBED Bilirubin 0.8 0.2 - 1.3 mg/dl EXTERNAL LAB SCRIBED Plasma Protein 7.0 6.3 - 8.2 g/dl EXTERNAL LAB SCRIBED Albumin 4.3 3.5 - 5.1 g/dl EXTERNAL LAB SCRIBED Alkaline Phosphatase 58 38 - 126 Units/L EXTERNAL LAB SCRIBED Alanine Transaminase (ALT) 37(A) 6 - 35 Units/L EXTERNAL LAB SCRIBED Aspartate Transaminase (AST) 32 14 - 36 Units/L EXTERNAL LAB SCRIBED eGFR in NonAfrican Tristanian 57 >=60 - NA EXTERNAL LAB Blood 01/05/2022 12:4 8 PM PACK TRAIN DRIVER us Historical Provider LAB BLOOD ORDERABLES Edit ed Result - Final EXTERNAL LAB * Lipid panel (01/05/2022 12:48 PM PACK TRAIN DRIVER) Pathologist [facility] SCRIBED Cholesterol, Total 138 0 - 200 EXTERNAL LAB SCRIBED HDL 54 NA - >35 EXTERNAL LAB SCRIBED LDL 51 NA - <130 EXTERNAL LAB SCRIBED Triglycerides 107 NA - <150 EXTERNAL LAB Blood 01/05/2022 12:4 8 PM PACK TRAIN DRIVER Historical Provider MD LAB BLOOD ORDERABLES Edit ed Result - Final EXTERNAL LAB * Thyroxine (T4) Free, Direct, S (01/05/2022 12:48 PM PACK TRAIN DRIVER) SCRIBED T4, Free 1.26 0.78 - 2.19 mcg/dL EXTERNAL LAB Blood 01/05/2022 12:4 8 PM PACK TRAIN DRIVER Historical Provider LAB BLOOD ORDERABLES Edit ed Result - Final EXTERNAL LAB * Vitamin D 25 hydroxy (01/05/2022 12:48 PM PACK TRAIN DRIVER) SCRIBED 25-OH Vitamin D 53.4 30 - 100 ng/mL EXTERNAL LAB Blood 01/05/2022 12:4 8 PM PACK TRAIN DRIVER Historical Provider MD LAB BLOOD ORDERABLES Edit ed Result - Final Performing Organization Address [place]/ZIP Co de Phone Number EXTERNAL LAB * Hemoglobin A1c (01/05/2022 12:48 PM PACK TRAIN DRIVER) SCRIBED Hemoglobin A1c 5.7 NA - <5.7 % EXTERNAL LAB Blood 01/05/2022 12:4 8 PM PACK TRAIN DRIVER Historical Provider MD LAB BLOOD ORDERABLES Edit ed Result - Final EXTERNAL LAB * TSH (01/05/2022 12:45 PM PACK TRAIN DRIVER) Scribed TSH 1.30 0.42 - 4.68 mcU/mL EXTERNAL LAB Blood 01/05/2022 12:4 5 PM PACK TRAIN DRIVER us Historical Provider LAB BLOOD ORDERABLES Edit ed Result - Final EXTERNAL LAB documented in this encounter Visit Diagnoses Not on filedocumented in this encounter Care Teams Lute Packer Or Applier Relationship Specialty Start Date End Date Tyler Berger MD [address] [facility] [facility] [place] [id number] PCP - General 08/12/16 documented as of this encounter
--- OUTSIDE RECORDS SUMMARY | 2024-02-14 13:38 | XMS_ITS | Encounter Summary ---
Author Organization [facility] Address [address] [place] [address] Care Team Providers Care Survey Crew Chief Name Role Phone Tyler Berger MD Primary Care Provider [phone] Encounter Details Date Type Department Care Team (Late st Contact Info) Description 08/14/2023 Orders Only [facility] Diabetes and Endocrinology [address] [place] [phone] Provider, MD Marta [address] [place], [place] [phone] Social History Tobacco Use Types Packs/Day Years [...] Procedure Name Priority Date/Time Associated Diagnosis Comments COMPREHENSIVE METABOLIC PANEL Routine 08/09/2023 documented in this encounter Results * (ABNORMAL) Comprehensive metabolic panel (08/09/2023) SCRIBED Sodium 136(A) 137 - 145 mmol/L EXTERNAL LAB SCRIBED Potassium 4.0 3.4 - 5.0 mmol/L EXTERNAL LAB SCRIBED Chloride 106 98 - 107 mmol/L EXTERNAL LAB SCRIBED Carbon Dioxide 23 22 - 30 mmol/L EXTERNAL LAB SCRIBED Anion Gap 7 4 - 12 mmol/L EXTERNAL LAB SCRIBED Urea Nitrogen (BUN) 15 7 - 17 mg/dl EXTERNAL LAB SCRIBED Creatinine 1.10(A) 0.7 - 1.0 mg/dl EXTERNAL LAB SCRIBED Glucose 89 65 - 110 mg/dl EXTERNAL LAB SCRIBED Calcium 9.2 8.4 - 10.2 mg/dl EXTERNAL LAB SCRIBED Bilirubin 0.8 0.2 - 1.3 mg/dl EXTERNAL LAB SCRIBED Alanine Transaminase (ALT) 27 14 - 36 Units/L EXTERNAL LAB SCRIBED Aspartate Transaminase (AST) 33 6 - 35 Units/L EXTERNAL LAB SCRIBED eGFR in NonAfrican Croatian 51 >59 - NA EXTERNAL LAB Blood 08/09/2023 us Historical Provider LAB BLOOD ORDERABLES Edit ed Result - Final EXTERNAL LAB documented in this encounter Visit Diagnoses Not on filedocumented in this encounter Care Teams Survey Crew Chief Relationship Specialty Start Date End Date Tyler Berger MD [address] [place] [address] PCP - General 08/12/16 documented as of this encounter
--- OUTSIDE RECORDS SUMMARY | 2024-02-14 13:38 | XMS_ITS | Encounter Summary ---
Author Organization [facility] Address [address] [place] [id number] Care Team Providers Care Building Custodian Name Role Phone Tyler Berger MD Primary Care Provider [phone] Reason for Visit * Reason Onset Date Comments Appointment 08/20/2023 Encounter Details Date Type Department Care Team (Late st Contact Info) Description 08/20/2023 Telephone [facility] Diabetes and Endocrinology [address] [place] [phone] [place] [phone] [address] Appointment Social History Tobacco Use Types Packs/Day Years [...] encounter Miscellaneous Notes * Telephone Encounter - Brandon Vannnorma - 08/20/2023 5:19 PM CDT Reached out to patient to r/s appt due to Dr. Gabriel no longer servicing the [facility] location, no answer, wasn't able to leave , and sent frentinghart message. documented in this encounter Plan of Treatment Not on file documented as of this encounter Visit Diagnoses Not on filedocumented in this encounter Care Teams Building Custodian Relationship Specialty Start Date End Date Tyler Berger MD [address] [facility] [address] [facility] [address] INTER[address] MED[address]INE [place], [place] [phone] PCP - General 08/12/16 documented as of this encounter
--- OUTSIDE RECORDS SUMMARY | 2024-02-14 13:39 | XMS_ITS | Encounter Summary ---
Author Organization [facility] Address [address] [facility] [address] [place] [address] Care Team Providers Care It Security Specialist Name Role Phone Tyler Berger MD Primary Care Provider [phone] Reason for Visit * Reason Comments Hypothyroidism Encounter Details Date Type Department Care Team (Latest Contact Info) Description 08/21/2017 9:00 AM CDT [facility] [address] [phone] [place] [id number] [address] Acquired hypothyroidism (Primary Dx) Social [...] Sign Reading Time Taken Comments Blood Pressure 124/86 08/21/2017 9:06 AM CDT Pulse 78 08/21/2017 9:06 AM CDT Temperature - - Respiratory Rate 12 08/21/2017 9:06 AM CDT Oxygen Saturation - - Inhaled Oxygen Concentration - - Weight 81.6 kg (180 lb) 08/21/2017 9:06 AM CDT Height 165.1 cm (5' 5 ) 08/21/2017 9:06 AM CDT Body Mass Index 29.95 08/21/2017 9:06 AM CDT documented in this encounter Progress Notes * Luigi Gabriel MD - 08/21/2017 9:00 AM CDT Subjective/Objective Patient ID: En Pacheco is a 51 y.o. female. Chief Complaint Hypothyroidism HPI Mrs. Pacheco comes to day to establish care about her hypothryodism. She has long standing hx of hypothyroidism. Started after a hysterectomy in 2011 . Pt had had oophorectomy Currently on Levothyroxine 88 mcg; the dose has been the same for many years. Last set of labs from 03/2017 showed a TSH of 0.087 with free T4 of 1.57 Her main concern is weight gain and inability to lose weight. Also feeling tired all the time. 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 She says she does not sleep well, waking up many times thru the night. 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 Review of Systems Constitutional: Positive for fatigue and unexpected weight change. Negative for activity change. HENT: Negative for congestion, hearing loss, trouble swallowing and voice change. Eyes: Negative for redness and visual disturbance. Respiratory: Negative for apnea, cough and chest tightness. Cardiovascular: Negative for chest pain, palpitations and leg swelling. Gastrointestinal: Positive for abdominal pain and constipation. Negative for abdominal distention, diarrhea and nausea. Endocrine: Positive for heat intolerance. Negative for polydipsia, polyphagia and polyuria. Hot flashes Genitourinary: Negative for difficulty urinating, frequency and urgency. Musculoskeletal: Positive for back pain and neck pain. Negative for arthralgias and gait problem. Skin: Positive for color change. Allergic/Immunologic: Negative for food allergies. Neurological: Negative for dizziness, tremors, syncope, weakness, light- headedness and headaches. Hematological: Negative for adenopathy. Psychiatric/Behavioral: Negative for sleep disturbance. The patient is not nervous/anxious. Physical Exam Constitutional: She is oriented to person, place, and time. She appears well-developed. HENT: Head: Normocephalic and atraumatic. Eyes: Conjunctivae and EOM are normal. Pupils are equal, round, and reactive to light. Neck: Trachea normal and phonation normal. No [...] all orders for this visit: Acquired hypothyroidism (Primary) Assessment & Plan: Your goal of treatment is to keep [...] missing in a week, they can be takenall together at once, making sure at the end of the week, all 7 tabs have been taken. Check TFT's Consider lowering Synthroid to 75 mcg daily Orders: - TSH; Future - T4, free; Future documented in this encounter Miscellaneous Notes * Assessment & Plan Note - Luigi Gabriel MD - 08/21/2017 11:02 AM CDTAssociated Problem(s): Acquired hypothyroidism Your goal of treatment is to keep [...] missing in a week, they can be takenall together at once, making sure at the end of the week, all 7 tabs have been taken. Check TFT's Consider lowering Synthroid to 75 mcg daily * Addendum Note - Georgette Valerio MA - 08/21/2017 9:00 AM CDTAddended by: GEORGETTE VALERIO on: 08/07/2018 10:45 AM Modules accepted: Orders * Addendum Note - Georgette Valerio MA - 08/21/2017 9:00 AM CDTAddended by: GOERGETTE VALERIO on: 08/07/2018 10:45 AM Modules accepted: Orders documented in this encounter Plan of Treatment Not on file documented as of this encounter Procedures Procedure Name Priority Date/Time Associated Diagnosis Comments TSH Routine 07/24/2018 Acquired hypothyroidism T4, FREE Routine 07/24/2018 Acquired hypothyroidism documented in this encounter Results * TSH (07/24/2018) Scribed TSH 0.65 0.47 - 4.68 mcU/mL EXTERNAL LAB Blood specimen (specimen) 07/24/2018 Luigi Gabriel MD LAB BLOOD ORDERABLES Final Resul t Performing Organization Address City/[facility]/ZIP Co de Phone Number EXTERNAL LAB * T4, free (07/24/2018) SCRIBED T4, Free 1.26 0.78 - 2.19 mcg/dL EXTERNAL LAB Blood specimen (specimen) 07/24/2018 Luigi Gabriel MD LAB BLOOD ORDERABLES Final Resul t EXTERNAL LAB documented in this encounter Visit Diagnoses Diagnosis Acquired hypothyroidism- Primary Unspecified hypothyroidism documented in this encounter Historical Medications * This list may reflect changes made after this encounter. dicyclomine (BENTYL) 10 mg capsule ESTRACE 0.01 % (0.1 mg/gram) vaginal cream 05/22/2017 estradiol (VAGIFEM) 10 mcg tablet Insert into the vagina. 07/20/2019 levothyroxine (SYNTHROID, LEVOTHROID) 88 mcg tablet 07/08/2017 08/27/2017 added in this encounter Care Teams It Security Specialist Relationship Specialty Start Date End Date Tyler Berger MD [address] [facility] [address] [facility] [address] [place] [address] PCP - General 08/12/16 documented as of this encounter
== END 2024-02-07 10:22 | disposition home or self-care (01) ==
LOC: ANHLAB 10:22
PROVIDERS: PCP Internal Medicine; Visit Provider Internal Medicine
DX: E03.9 Hypothyroidism, unspecified (principal); E78.5 Hyperlipidemia, unspecified; Z79.899 Other long term (current) drug therapy; Z13.1 Encounter for screening for diabetes mellitus
CPT/HCPCS: 36415; 80048; 80061; 83036; 84439; 84443

== ENCOUNTER 2024-06-10 07:44 | Outpatient (CLI) | payer BC, SELFPAY ==
--- NOTE | ~2024-06-10 | MM_ITS ---
EXAMINATION: MM screening [facility] BI w [facility] HISTORY: Screening TECHNIQUE: Craniocaudal and mediolateral oblique 3-D tomosynthesis images were obtained and synthetic 2-D images were generated. CAD analysis was submitted and interpreted. COMPARISON: Comparison to multiple prior studies sequentially, with oldest reviewed study dated 05/31. BREAST PARENCHYMAL COMPOSITION: Not dense: There are scattered areas of fibroglandular density. FINDINGS: There is no evidence of suspicious mass, calcification, or architectural distortion to sugg est malignancy in either breast. There has been no suspicious interval change. IMPRESSION: 1. No mammographic evidence of malignancy. 2. Recommend routine screening mammography in one year. BI-RADS Category 1: Negative Reviewed, dictated and finalized at location A.
--- OUTSIDE RECORDS SUMMARY | 2024-06-10 07:47 | XMS_ITS | Referral Summary ---
Author Organization [facility] Physician Office Building [address] [place] [phone] Care Team Providers Care Cardiac Rn Name Role Phone Tyler Berger MD Primary Care Provider [phone] Allergies Active Allergy Reactions Criticality Noted Date [...] Take 1 tablet by mouth daily Active gyshlwgl-ltl-nw ondroit-vit D3 750 mg-125 mg -600 mg [...] ) Assessment & Plan (12/25/2017 4:07 PM AQUATIC BIOLOGIST): Will check TSH and free T4 Will [...] 59 10/15/2022 3:33 PM CDT Temperature 36.2 C (97.1 F) 07/20/2019 3:44 PM CDT Respiratory Rate 16 10/15/2022 3:33 PM CDT Oxygen Saturation - - Inhaled Oxygen Concentration - - Weight 82.1 kg (181 lb) 10/15/2022 3:33 PM CDT Height 165.1 cm (5' 5 ) 10/15/2022 3:33 PM CDT Body Mass Index 30.12 10/15/2022 3:33 PM CDT Plan of Treatment Not on file Insurance [employer] ACCESS CHOICE [employer] ACCESS CHOICE Care Teams Cardiac Rn Relationship Specialty Start Date End Date Tyler Breger MD [address] [place] [address] PCP - General 08/12/16
--- OUTSIDE RECORDS SUMMARY | 2024-06-10 07:47 | XMS_ITS | Clinical Summary ---
Author Organization [facility] Physician Office Building [address] [place] [phone] Care Team Providers Care Payroll Analyst Name Role Phone Tyler Berger MD Primary Care Provider [phone] Allergies Active Allergy Reactions Criticality Noted Date [...] Take 1 tablet by mouth daily Active fzhkzbeu-zla-tg ondroit-vit D3 750 mg-125 mg -600 mg [...] ) Assessment & Plan (12/25/2017 4:07 PM SUPERVISOR RUBBER COVERING): Will check TSH and free T4 Will [...] patient's age to complete this topic Insurance [employer] ACCESS CHOICE [employer] ACCESS CHOICE Care Teams Payroll Analyst Relationship Specialty Start Date End Date Tyler Berger MD [address] [facility] [address] [place] [address] [place] [address] [facility] - General 08/12/16
== END 2024-06-10 07:45 | disposition home or self-care (01) ==
PROVIDERS: Visit Provider Obstetrics & Gynecology
DX: Z12.31 Encounter for screening mammogram for malignant neoplasm of breast (principal)
CPT/HCPCS: 77063; 77067

== ENCOUNTER 2024-07-03 13:34 | Outpatient (CLI) | payer BC, SELFPAY ==
--- OUTSIDE RECORDS SUMMARY | 2024-07-03 13:37 | XMS_ITS | Referral Summary ---
Author Organization [facility] Physician Office Building [address] [place] [phone] Care Team Providers Care Mechanical Developer Prover Name Role Phone Tyler Berger MD Primary Care Provider [phone] Allergies Active Allergy Reactions Criticality Noted Date [...] Take 1 tablet by mouth daily Active csksoppn-myv-gg ondroit-vit D3 750 mg-125 mg -600 mg [...] ) Assessment & Plan (12/25/2017 4:07 PM WAREHOUSE TEAM LEADER): Will check TSH and free T4 Will [...] Plan of Treatment Not on file Insurance [employer] ACCESS CHOICE [facility] Address: [place] [id number] [place] [address] [employer] ACCESS CHOICE Care Teams Mechanical Developer Prover Relationship Specialty Start Date End Date Tyler Berger MD [address] [place] [address] PCP - General 08/12/16
--- OUTSIDE RECORDS SUMMARY | 2024-07-03 13:37 | XMS_ITS | Clinical Summary ---
Author Organization [facility] Physician Office Building [address] [place] [phone] Care Team Providers Care Production Sorter Name Role Phone Tyler Berger MD Primary Care Provider [phone] Allergies Active Allergy Reactions Criticality Noted Date [...] Take 1 tablet by mouth daily Active qrvbmuyq-ris-vr ondroit-vit D3 750 mg-125 mg -600 mg [...] ) Assessment & Plan (12/25/2017 4:07 PM HOME ADMINISTRATOR): Will check TSH and free T4 Will [...] patient's age to complete this topic Insurance [employer] ACCESS CHOICE [employer] ACCESS CHOICE Care Teams Production Sorter Relationship Specialty Start Date End Date Tyler Berger MD [address] [facility] [address] [place] [address] [place] [address] [facility] - General 08/12/16
[2024-07-03 14:37] LABS: Vitamin D 25 Hydroxy 67.8 ng/mL
[2024-07-03 14:40] LABS: Alanine Aminotransferase 28 U/L (6-35); Albumin Level 4.3 g/dL (3.5-5.1); Alkaline Phosphatase 60 U/L (38-126); Anion Gap 9 mmol/L (4-12); Aspartate Amino Transferase 34 U/L (14-36); Bilirubin,Total 0.8 mg/dL (0.2-1.3); Blood Urea Nitrogen 14 mg/dL (7-17); Calcium 9.3 mg/dL (8.4-10.2); Carbon Dioxide 22 mmol/L (22-30); Chloride 105 mmol/L (98-107); Cholesterol 144 mg/dL (0-200); Estimated Glomerular Filt Rate 60; Glucose 93 mg/dL (65-110); HDL Direct 59 mg/dL; Potassium 3.9 mmol/L (3.4-5.0); Sodium 136 mmol/L (137-145); Triglycerides 129 mg/dL (<150)
[2024-07-03 14:51] LABS: LDL Cholesterol Direct 43 mg/dL
[2024-07-03 14:59] LABS: Hemoglobin A1C 5.5 % (<5.7)
== END 2024-07-03 13:35 | disposition home or self-care (01) ==
LOC: ANHLAB 13:35
PROVIDERS: Visit Provider Internal Medicine
DX: E78.2 Mixed hyperlipidemia (principal); Z79.899 Other long term (current) drug therapy; E55.9 Vitamin D deficiency, unspecified; Z13.1 Encounter for screening for diabetes mellitus
CPT/HCPCS: 36415; 80053; 80061; 82306; 83036

== ENCOUNTER 2025-02-03 09:10 | Outpatient (CLI) | payer BC, SELFPAY ==
[2025-02-03 10:33] LABS: Alanine Aminotransferase 28 U/L (6-35); Albumin Level 4.8 g/dL (3.5-5.1); Alkaline Phosphatase 68 U/L (38-126); Anion Gap 8 mmol/L (4-12); Aspartate Amino Transferase 33 U/L (14-36); Bilirubin,Total 1.0 mg/dL (0.2-1.3); Blood Urea Nitrogen 19 mg/dL (7-17); Calcium 9.6 mg/dL (8.4-10.2); Carbon Dioxide 26 mmol/L (22-30); Chloride 103 mmol/L (98-107); Cholesterol 162 mg/dL (0-200); Estimated Glomerular Filt Rate 53; Free T4 Free Thyroxine 1.35 ng/dL (0.78-2.19); Glucose 99 mg/dL (65-110); HDL Direct 83 mg/dL; Potassium 4.2 mmol/L (3.4-5.0); Sodium 137 mmol/L (137-145); Total Protein 8.0 g/dL (6.3-8.2); Triglycerides 108 mg/dL (<150)
[2025-02-03 10:49] LABS: Thyroid Stimulating Hormone 0.700 uIU/mL (0.465-4.680)
[2025-02-03 11:16] LABS: Hemoglobin A1C 5.5 % (<5.7)
[2025-02-03 11:25] LABS: Vitamin B12 900.0 pg/mL (239-931)
== END 2025-02-03 09:11 | disposition home or self-care (01) ==
PROVIDERS: PCP Internal Medicine; Visit Provider Internal Medicine
DX: Z13.1 Encounter for screening for diabetes mellitus (principal); E03.9 Hypothyroidism, unspecified; E53.8 Deficiency of other specified B group vitamins; E78.2 Mixed hyperlipidemia; Z79.899 Other long term (current) drug therapy
CPT/HCPCS: 36415; 80053; 80061; 82607; 82746; 83036; 84439; 84443

== ENCOUNTER 2025-02-15 11:30 | Outpatient (CLI) | payer BC, SELFPAY ==
--- NOTE | ~2025-02-15 | DEXA_ITS ---
Bone Density Report Name: RAUL BOWLES Age: 59 Sex: Female Ethnicity: White Date of : 1965 Indication: postmenopausal; screening for osteoporosis; hysterectomy; Referring Provider: CHAYO IRVIN Study: Bone densitometry was performed. Exam Date: February 15, 2025 Accession number: [id number] Bone Density: Region BMD T-score Z-score Classification AP Spine(L1-L4) 1.222 1.6 3.1 Normal Femoral Neck (Left) 0.796 -0.5 0.9 Normal Total Hip (Left) 0.950 0.1 1.1 Normal Femoral Neck (Right) 0.813 -0.3 1.0 Normal Total Hip (Right) 0.962 0.2 1.2 Normal Total Hip Mean 0.956 0.2 1.2 Normal World Health Organization criteria for BMD impression classify patients as: Normal (T-score at or above -1.0), Osteopenia (T-score between -1.0 and -2.5), or Osteoporosis (T-score at or below -2.5). 10-year Fracture Risk: FRAX not reported because: All T-scores for Spine Total, Hip Total, Femoral Neck at or above -1.0 Previous Exams: Region Exam Age BMD T-score BMD Change BMD Change Date g/cm2 vs Baseline vs Previous AP Spine (L1-L4) 02/15/2025 59 1.222 1.6 0.039 (3.3%)* -0.027 (-2.2%) 06/20/2018 52 1.249 1.8 0.066 (5.6%)* 0.020 (1.7%) 04/06/2016 50 1.229 1.7 0.046 (3.9%)* 0.046 (3.9%)* 10/23/2013 47 1.183 1.2 Total Hip(Left) 02/15/2025 59 0.950 0.1 -0.023 (-2.4%) -0.021 (-2.2%) 06/20/2018 52 0.971 0.2 -0.002 (-0.2%) -0.007 (-0.8%) 04/06/2016 50 0.978 0.3 0.005 (0.5%) 0.005 (0.5%) 10/23/2013 47 0.973 0.3 Total Hip(Right) 02/15/2025 59 0.962 0.2 0.027 (2.9%) -0.018 (-1.8%) 06/20/2018 52 0.979 0.3 0.045 (4.8%)* 0.055 (6.0%)* 04/06/2016 50 0.924 -0.1 -0.011 (-1.1%) -0.011 (-1.1%) 10/23/2013 47 0.935 -0.1 *Denotes significance at 95% confidence level, LSC for AP Spine = 0.022 g/cm2, LSC for Total Hip = 0.027 g/cm2 Clinical Information Provided by Patient: Has used the following medications: Vitamin D, Calcium Has the following medical conditions: Hysterectomy Patient maximum height was 64 Menopause Age: 46 No regular weight bearing exercise Drinks caffeinated beverages Onset of menses at age 10 Number of children 0 Impression: The patient has normal bone mass. The BMD for the AP Spine (L1-L4) decreased, changing by -2.2% since the last DXA exam. Discussion: BONE DENSITY IS ABOVE THE MINIMUM DESIRABLE LEVEL AT ALL SKELETAL SITES TESTED. This patient?s bone mineral density is above the minimum desirable level (T-score -1.0 or better) at all sites measured. The patient should follow a healthful lifestyle (good nutrition with adequate calcium and vitamin D, and appropriate weight-bearing exercise). Follow-Up: Consider repeating this study in 3 to 4 years to reassess this patient's status, or sooner if there is some new clinical indication. Reported by: MARIBELL on 02/15/2025 12:12:00 PM. Reviewed, dictated and finalized at location A.
--- OUTSIDE RECORDS SUMMARY | 2025-02-15 12:12 | XMS_ITS | Clinical Summary ---
Author Organization [facility] Physician Office Building [address] [place] [phone] Care Team Providers Care Deputy K 9 Name Role Phone Tyler Berger MD Primary Care Provider [phone] Allergies Active Allergy Reactions Criticality Noted Date [...] Take 1 tablet by mouth daily Active ilvetnip-jol-bp ondroit-vit D3 750 mg-125 mg -600 mg [...] ) Assessment & Plan (12/25/2017 4:07 PM PAPER GUILLOTINE OPERATOR): Will check TSH and free T4 Will [...] 3:33 PM CDT Height 165.1 cm (5' 5) 10/15/2022 3:33 PM CDT Body Mass Index [...] 07/21/2018, Additional history exists Influenza Vaccine (#1) 2024 12/11/2019 Pneumococcal vaccine <65 Aged Out No longer eligible based on patient's age to complete this topic Insurance [employer] Care Teams Deputy K 9 Relationship Specialty Start Date End Date Tyler Berger MD PCP - General 6/26/17
== END 2025-02-15 11:31 | disposition home or self-care (01) ==
PROVIDERS: PCP Internal Medicine; Visit Provider Obstetrics & Gynecology
DX: Z13.820 Encounter for screening for osteoporosis (principal); Z78.0 Asymptomatic menopausal state
CPT/HCPCS: 77080